=== PATIENT | male | born 1955 ===

== ENCOUNTER 2022-08-15 08:48 | Outpatient (REF) | payer MEDICARE, SELFPAY ==
[2022-08-15 12:02] LABS: Alanine Aminotransferase 17 U/L (0-40); Albumin Level 4.4 g/dL (3.5-5.0); Alkaline Phosphatase 72 U/L (39-117); Anion Gap 12 (12-20); Aspartate Amino Transferase 19 U/L (5-37); Bilirubin Total 0.7 mg/dL (0.0-1.0); Blood Urea Nitrogen 18 mg/dL (9-16); Carbon Dioxide 26 mmol/L (22-29); Chloride 107 mmol/L (96-108); Cholesterol 224 mg/dL; Estimated Glomerular Filt Rate > 60; Glucose Random 94 mg/dL (60-115); HDL Cholesterol 45 mg/dL; LDL Cholesterol Calculated 164 mg/dl; Potassium 4.2 mmol/L (3.3-5.1); Sodium 141 mmol/L (135-145); Total Protein 6.7 g/dL (6.5-8.0); Triglycerides 79 mg/dL
[2022-08-15 12:32] LABS: Folate 13.4 ng/mL (> or = 4.0); Free T4 (Free Thyroxine) 0.84 ng/dL (0.71-1.85); Prostate Specific Antigen Scr 0.44 ng/mL (<0.05-4.0); Thyroid Stimulating Hormone 1.14 uIU/mL (0.32-4.0); Vitamin B12 412 pg/mL (200-900)
[2022-08-18 20:48] LABS: Treponema pallidum Ab FTA ABS Nonreactive (Nonreactive)
== END 2022-08-15 08:49 | disposition home or self-care (01) ==
LOC: HO.WFDLDS 08:48
PROVIDERS: Visit Provider Internal Medicine
DX: Z12.5 Encounter for screening for malignant neoplasm of prostate (principal); R03.0 Elevated blood-pressure reading, without diagnosis of hypertension; E78.00 Pure hypercholesterolemia, unspecified
CPT/HCPCS: 36415; 80053; 80061; 82607; 82746; 84153; 84439; 84443; 86780

== ENCOUNTER 2023-08-06 11:58 | Outpatient (AMB) | payer BC, SELFPAY ==
[2023-08-06 12:30] VITALS: BP 130/72; PULSE 87; O2SAT 98; BMI 27.5
--- NOTE | 2023-08-06 12:30 | MHC.PC.OV ---
Vital Signs 08/06/23 12:30 Height 5 ft 5 in Weight 165 lb 0.2 oz BMI 27.5 BP 130/72 Blood Pressure Location Lt brachial Position Sitting Pulse 87 Pulse Source Pulse Oximeter Pulse Oximetry (%) 98 Oxygen Delivery Method Room Air Intake Visit Reasons: Annual Exam Intake Note: Patient is here today for a physical. Development Disability Specialist Required: No Allergies No Known Allergies Allergy (Verified 08/06/23 12:31) Medication List - Last Reconciled 08/06/23 by Abiodun Estevez MD [CPAP ] diphenhydramine HCl (NightTime Sleep Aid (diphenhydramine)) 25 mg PO BEDTIME PRN Tobacco use date assessed: 08/06/23 Fall risk assessment: No Falls in past year Last assessed Fall Risk: 08/15/23 Dental Screening Dental Screen Date: 08/06/23 Did you have a dental visit in the last 12 months?: Yes Did you have a dental problem in the last 6 months where you did not have access to dental care?: No Was dental information given to patient?: Patient has dentist HPI Annual Exam HPI Details 67-year-old overweight male with a history of hypercholesterolemia recurrent depression obstructive sleep apnea last seen in September 2022. Patient is here for follow-up. Review of the notes in June 2018 colonoscopy was done and advised to repeat in 5 years. frequency. dizzy on getting up fast. intermittent diarrhea PFSH Medical History (Updated 08/06/23 @ 12:43 by Abiodun Estevez MD) Overweight (BMI 25.0-29.9) GERD (gastroesophageal reflux disease) Surgical History (Updated 08/02/22 @ 14:28 by Abiodun Estevez MD) Right ACL tear Family History (Updated 09/13/22 @ 12:15 by Vale Helton CMA) Father Abdominal aneurysm Skin cancer Mother Alzheimer disease Sister No problems noted. Sister No problems noted. Brother Substance abuse Daughter No problems noted. Social History (Updated 08/06/23 @ 12:48 by Abiodun Estevez MD) Housing: Apartment Alcohol intake: current Comment: last drink thanksgiving 1 glass Patient Tobacco Use Status: Former Tobacco user Tobacco use type: Cigarette Years Smoked: 20 years old- 3 years e-Cigarette/Vaping Use: Never Used Second Hand Smoke Exposure: No service: No Current occupational status: employed Cognitive needs: No Hearing needs: No Vision needs: Yes Questionnaire PHQ-9 Over the last 2 weeks, how often have you been bothered by any of the following problems? 1. Little interest or pleasure in doing things: not at all 2. Feeling down, depressed, or hopeless: not at all 3. Trouble falling or staying asleep, or sleeping too much: not at all 4. Feeling tired or having little energy: not at all 5. Poor appetite or overeating: not at all 6. Feeling bad about yourself - or that you are a failure or have let yourself or your family down: not at all 7. Trouble concentrating on things, such as reading the newspaper or watching television: not at all 8. Moving or speaking so slowly that other people could have noticed. Or the opposite - being so fidgety or restless that you have been moving around a lot more than usual: not at all 9. Thoughts that you would be better off or of hurting yourself in some way: not at all Total score: 0 Depression Screening Interpretation: Negative Depression Screening Done: Yes Source: Developed by Drs. Danny Emerson, Alissa Saab, Tony Krishna and colleagues, with an educational cyndie from [employer]. Thrive Questionnaire Date Thrive assessed: 08/06/23 I am a: Patient What is your living situation today?: I have a steady place to live Within the past 12 months, did the food you bought not last and you didn't have the money to get more?: Never true Within the past 12 months, did you worry whether your food would run out before you got money to buy more?: Never true Do you have trouble paying for medicines?: No Do you have trouble getting transportation to medical appointments?: No Do you have trouble paying your heating and electricity bill?: No Do you have trouble taking care of your child, family member or friend?: No Do you have trouble with day-to-day activities such as bathing, preparing meals, shopping, managing finances, etc.?: No Are you currently unemployed and looking for a job?: No Are you interested in more education?: No Please select the resources that you would like help with: None THRIVE Score: 0 AUDIT C Alcohol Use Questionnaire (AUDIT-C) 1. How often do you have a drink containing alcohol?: Monthly or less 2. How many drinks containing alcohol do you have on a typical day when you are drinking?: 1 or 2 3. How often do you have six or more drinks on one occasion?: Never Total Score: 1 MEE-7 AMB Questionnaire MEE-7 Date MEE - 7 assessed: 08/06/23 Feeling nervous, anxious, or on edge: 0 = Not at all Not being able to stop or control worryin = Not at all Worrying too much about different things: 0 = Not at all Trouble relaxin = Not at all Being so restless that it is hard to sit still: 0 = Not at all Becoming easily annoyed or irritable: 0 = Not at all Feeling afraid as if something awful might happen: 0 = Not at all Total MEE-7 score (0-4 normal; 5-9 mild; 10-14 moderate; 15-21 severe): 0 Source: Developed by Drs. Danny Emerson, Alissa Saab, Tony Krishna and colleagues, with an educational cyndie from [employer]. Review of Systems Const Denies poor appetite and Denies weakness Eyes Denies no additional complaints ENT Reports Normal hearing present, Denies dizziness, Denies nasal congestion, Denies tinnitus and Denies sore throat Card Denies chest pain, Denies syncope, Denies rapid heart rate and Denies dyspnea Resp Denies cough and Denies dyspnea GI Denies change in stool character, Reports constipation, Denies diarrhea, Denies nausea and Denies vomiting Denies dysuria and Denies urinary frequency Neuro Reports Normal hearing present, Denies confusion, Denies dizziness, Denies syncope and Denies weakness Psych Denies confusion Physical exam (Primary Care) Vital Signs: Last Vital Signs Pulse 87 08/06/23 12:30 BP 130/72 08/06/23 12:30 Pulse Ox 98 08/06/23 12:30 Oxygen Delivery Method Room Air 08/06/23 12:30 BMI result Body Mass Index 27.5 Tobacco/Smoking Status: Tobacco use Status Tobacco use date assessed 08/06/23 08/06/23 12:36 Patient Tobacco Use Status Former Tobacco user 08/06/23 12:48 Tobacco use type Cigarette 08/06/23 12:48 e-Cigarette/Vaping Use Never Used 08/06/23 12:48 PHQ-9: PHQ-9 Score PHQ-9: Total score 0 08/06/23 12:39 Depression Screening Interpretation: Negative Thrive Assessment: Date of Thrive Assessment Date Thrive assessed 08/06/23 08/06/23 12:36 Const General: No confusion Orientation/consciousness: No confusion HENMT Head: Yes normocephalic Ears: external ears normal and TM's normal bilaterally Face and sinus: Yes normal facial exam Mouth: moist mucous membranes Throat: Yes tonsils normal Eyes Conjunctivae: conjunctivae normal Pupils: Equal, round and reactive pupils present and Pupil accommodation reflex normal Direct Ophthalmoscopy: normal light reflex Neck Neck: No lymphadenopathy Thyroid: Thyroid normal Chest Chest palpation & inspection: normal inspection of the chest Resp Effort & Inspection: normal respiratory effort and no audible wheezes Auscultation: clear to auscultation bilaterally, no crackles, no wheezes and lung sounds not diminished Cardio Rate: regular rate Rhythm: regular rhythm Peripheral pulses: radial pulses present and dorsalis pedis present GI Other: guaiac negative, prostate N, inguinal mild bulge Palpation (GI): no masses Auscultation: normal bowel sounds and normoactive bowel sounds Male General Exam: Yes normal external exam Skin General skin exam: no rashes or lesions noted Rashes: no rashes Neuro General: No confusion Cranial nerves: Yes Equal, round and reactive pupils present and Yes Normal hearing present Cognition (Neuro): normal cognition Gait exam (Neuro): Normal gait present Motor exam (neuro): 5/5 motor strength present throughout Deep tendon reflexes (DTR's): Right brachioradialis reflex intensity grade: 2+, Left brachioradialis reflex intensity grade: 2+, Right patellar reflex intensity grade: 2+ and Left patellar reflex intensity grade: 2+ Extrem General: No edema Immunizations tetanus-diphtheria toxoids-Td 2 Lf unit-2 Lf unit/0.5 mL IM suspension Performing Provider: Abiodun Estevez MD Performing Location: [facility] Administered by: FELICITY Patel on 08/06/23 13:04 Dose Route Admin Location Dispensed Lot Number Expiration Date [employer]DC [employer] 0.5 mL IM Left Deltoid 0.5 mL [id number] 10/15/23 [id number] [employer] VIS Given Date VIS Provided VIS Publication Date 08/06/23 Single Vaccine 21 Eligibility Eligibility Date Funding Source Not VFC Eligible 08/06/23 State funds Assessment and Plan Assessment & Plan (1) Annual physical exam: Code(s): Z00.00 - Encounter for general adult medical examination without abnormal findings (2) Obstructive sleep apnea (adult) (pediatric): Comment: CPAP 2011 Code(s): G47.33 - Obstructive sleep apnea (adult) (pediatric) Plan: Continue to use the CPAP more than 4 hours a night and benefits from this. (3) Recurrent depression: Comment: Declined any counseling and medication Code(s): F33.9 - Major depressive disorder, recurrent, unspecified Plan: Stable (4) Hypercholesterolemia: Code(s): E78.00 - Pure hypercholesterolemia, unspecified Plan: Avoid fried foods, chicken skin, eggs, butter margarine, pastries and meat. Be it pork or beef they have a lot of cholesterol LDL goal of less than 130 and triglyceride of less than 150. (5) Family history of colon cancer: Code(s): Z80.0 - Family history of malignant neoplasm of digestive organs Plan: Discussed and reminded about colonoscopy (6) Frequency of micturition: Code(s): R35.0 - Frequency of micturition (7) Bilateral hand pain: Code(s): M79.641 - Pain in right hand; M79.642 - Pain in left hand Orders: Orders US bladder Today R35.0 - Frequency of micturition Comprehensive Met. Panel Today R35.0 - Frequency of micturition Vitamin B12 and Folate Today R35.0 - Frequency of micturition UA w Microscopic Today R35.0 - Frequency of micturition Hemoglobin A1c Today R35.0 - Frequency of micturition Rheumatoid Factor Today M79.641 - Pain in right hand, M79.642 - Pain in left hand C Reactive Protein Today M79.641 - Pain in right hand, M79.642 - Pain in left hand XR hand LT 2V Today M79.641 - Pain in right hand, M79.642 - Pain in left hand Td State Immunization Today Z23 - Encounter for immunization Complete Blood Count Auto Diff Today R35.0 - Frequency of micturition Free T4 (Free Thyroxine) Today R35.0 - Frequency of micturition Thyroid Stimulating Hormone Today R35.0 - Frequency of micturition Lipid Panel Today E78.00 - Pure hypercholesterolemia, unspecified, R35.0 - Frequency of micturition Prostate Specific Antigen Scr Today R35.0 - Frequency of micturition Erythrocyte Sedimentation Rate Today M79.641 - Pain in right hand, M79.642 - Pain in left hand XR hand RT 2V Today M79.641 - Pain in right hand, M79.642 - Pain in left hand Referrals Gastroenterology Referral Z80.0 - Family history of malignant neoplasm of digestive organs Coding Level of Care Code Est Pt Prev Care >65y(94281) Diagnoses Annual physical exam Z00.00 Obstructive sleep apnea (adult) (pediatric) G47.33 Recurrent depression F33.9 Hypercholesterolemia E78.00 Family history of colon cancer Z80.0 Frequency of micturition R35.0 Bilateral hand pain M79.641; M79.642
== END 2023-08-06 13:12 | disposition home or self-care (01) ==
PROVIDERS: Visit Provider Internal Medicine
DX: Z00.00 Encounter for general adult medical examination without abnormal findings (principal); G47.33 Obstructive sleep apnea (adult) (pediatric); F33.9 Major depressive disorder, recurrent, unspecified; Z23 Encounter for immunization; E78.00 Pure hypercholesterolemia, unspecified; Z80.0 Family history of malignant neoplasm of digestive organs; R35.0 Frequency of micturition; M79.641 Pain in right hand; M79.642 Pain in left hand
CPT/HCPCS: 90471; 90714; 99397

== ENCOUNTER 2023-08-06 13:18 | Outpatient (REF) | payer MEDICARE, SELFPAY ==
--- NOTE | ~2023-08-06 | XR_ITS ---
EXAMINATION: XR HAND, RIGHT XR HAND, LEFT CLINICAL INFORMATION: Pain in bilateral hands. COMPARISON: None available. TECHNIQUE: PA, lateral, and oblique views of each hand and PA, lateral, and oblique views of each wrist. FINDINGS: RIGHT HAND: Moderate degenerative changes in the first carpometacarpal joint with joint space narrowing and hypertrophic change. Ulnar minus variance. Moderate degenerative changes with hypertrophic change in MCP joints, most notable in the second and third metacarpophalangeal joints. Marked degenerative changes with abundant hypertrophic change and adjacent ossicles/calcifications in the first IP and second DIP joints. Moderate degenerative changes at the fifth PIP joint. Tiny calcifications/ossicles adjacent to scattered joints of the hand of indeterminate age and etiology. Correlation with the clinical exam recommended to determine significance. LEFT HAND: Moderate degenerative changes in the first carpometacarpal joint with joint space narrowing and hypertrophic change. Advanced degenerative changes with hypertrophic change in the first IP, second DIP and third DIP joints. Moderate degenerative changes with hypertrophic change notable in second and third MCP joints. Tiny calcification/ossifications in the soft tissues adjacent to scattered joints. Correlation with clinical exam recommended to determine significance. XR/XR hand RT 2V IMPRESSION: 1. Fitstjql-da-yegwvd degenerative changes in bilateral hands and wrists. 2. Tiny calcifications/ossicles adjacent to scattered joints of the hands of indeterminate age and etiology. Correlation with the clinical exam recommended to determine significance. Recommend follow-up imaging in 10-14 days if fracture is suspected.
--- NOTE | ~2023-08-06 | XR_ITS ---
EXAMINATION: XR HAND, RIGHT XR HAND, LEFT CLINICAL INFORMATION: Pain in bilateral hands. COMPARISON: None available. TECHNIQUE: PA, lateral, and oblique views of each hand and PA, lateral, and oblique views of each wrist. FINDINGS: RIGHT HAND: Moderate degenerative changes in the first carpometacarpal joint with joint space narrowing and hypertrophic change. Ulnar minus variance. Moderate degenerative changes with hypertrophic change in MCP joints, most notable in the second and third metacarpophalangeal joints. Marked degenerative changes with abundant hypertrophic change and adjacent ossicles/calcifications in the first IP and second DIP joints. Moderate degenerative changes at the fifth PIP joint. Tiny calcifications/ossicles adjacent to scattered joints of the hand of indeterminate age and etiology. Correlation with the clinical exam recommended to determine significance. LEFT HAND: Moderate degenerative changes in the first carpometacarpal joint with joint space narrowing and hypertrophic change. Advanced degenerative changes with hypertrophic change in the first IP, second DIP and third DIP joints. Moderate degenerative changes with hypertrophic change notable in second and third MCP joints. Tiny calcification/ossifications in the soft tissues adjacent to scattered joints. Correlation with clinical exam recommended to determine significance. XR/XR hand LT 2V IMPRESSION: 1. Kwmaihky-pf-xkaffa degenerative changes in bilateral hands and wrists. 2. Tiny calcifications/ossicles adjacent to scattered joints of the hands of indeterminate age and etiology. Correlation with the clinical exam recommended to determine significance. Recommend follow-up imaging in 10-14 days if fracture is suspected.
== END 2023-08-06 13:19 | disposition home or self-care (01) ==
LOC: HO.XRAY 13:18
PROVIDERS: PCP Internal Medicine; Visit Provider Internal Medicine
DX: M79.641 Pain in right hand (principal); M79.642 Pain in left hand
CPT/HCPCS: 73120

== ENCOUNTER 2023-08-15 12:56 | Outpatient (REF) | payer MEDICARE, SELFPAY ==
--- NOTE | ~2023-08-15 | US_ITS ---
EXAMINATION: US PELVIS LIMITED (BLADDER) CLINICAL INFORMATION: Frequency of micturition. COMPARISON: None available. TECHNIQUE: Real-time imaging of the bladder. FINDINGS: BLADDER: Well distended. Bilateral ureteral jets are demonstrated. Prevoid bladder volume is 286.9 mL. Postvoid bladder volume is 22.1 mL. The prostate volume is 18.1 mL. US/US bladder IMPRESSION: Postvoid bladder volume is 22.1 mL. Prostate volume is 18.1 mL.
== END 2023-08-15 12:57 | disposition home or self-care (01) ==
LOC: HO.US 12:56
PROVIDERS: PCP Internal Medicine; Visit Provider Internal Medicine
DX: R35.0 Frequency of micturition (principal)
CPT/HCPCS: 76857

== ENCOUNTER 2023-08-20 09:16 | Outpatient (REF) | payer MEDICARE, SELFPAY ==
[2023-08-20 10:20] LABS: MANUAL DIFF FLAG NO
[2023-08-20 10:37] LABS: Appearance Urine Clear; Color Urine Yellow; Glucose Urine UA Negative (Negative); Leukocyte Esterase Urine Negative (Negative); Nitrite Urine Negative (Negative); Urine Blood Negative (Negative); Urine Ketones Trace mg/dL (Negative); Urine Protein Negative (Neg-Trace)
[2023-08-20 10:43] LABS: Bacteria Urine None Seen (None Seen); Hyaline Casts Urine 0-2 /LPF (0-2); RBC Urine 0-2 /HPF (0-2); Squamous Epithelial Cell Urine 0-2 /HPF (0-2); WBC Urine 0-5 /HPF (0-5)
[2023-08-20 10:44] LABS: Estimated Average Glucose 103 mg/dL; Hemoglobin A1c % 5.2 % (<6.0)
[2023-08-20 10:49] LABS: Basophils Percent Auto 0.5 % (0-2); Eosinophils Absolute Auto 0.2 X10*3/uL (0.0-0.4); Eosinophils Percent Auto 2.7 % (0-4); Hematocrit 43.8 % (42.0-52.0); Hemoglobin 14.6 g/dl (14.0-18.0); Imm Gran Abs Auto 0.01 X10*3/uL (0.00-0.03); Imm Gran Pct Auto 0.2 % (0.0-0.4); Lymphocytes Absolute Auto 2.2 X10*3/uL (1.2-4.9); Lymphocytes Percent Auto 35.5 % (20-40); Mean Corpuscular HGB Conc 33.3 g/dl (31.0-36.0); Mean Corpuscular Hemoglobin 29.8 pg (27.0-33.0); Mean Corpuscular Volume 89.4 fL (80.0-98.0); Mean Platelet Volume 10.6 fL (9.4-12.4); Monocytes Absolute Auto 0.6 X10*3/uL (0.1-1.2); Monocytes Percent Auto 9.3 % (2-11); Neutrophils Absolute Auto 3.2 x10*3/uL (2.0-8.3); Neutrophils Percent Auto 51.8 % (45-73); Platelet Count 205 X10*3/uL (160-400); Red Cell Distribution Width 12.9 % (11.0-16.0); White Blood Count 6.2 X10*3/uL (4.8-10.8)
[2023-08-20 11:34] LABS: Alanine Aminotransferase 21 U/L (0-40); Albumin Level 4.2 g/dL (3.5-5.0); Alkaline Phosphatase 69 U/L (39-117); Anion Gap 11 (12-20); Aspartate Amino Transferase 19 U/L (5-37); Bilirubin Total 0.5 mg/dL (0.0-1.0); Blood Urea Nitrogen 13 mg/dL (9-16); C Reactive Protein < 0.10 mg/dL (< or = 0.50); Calcium 9.2 mg/dL (8.4-10.2); Carbon Dioxide 27 mmol/L (22-29); Chloride 108 mmol/L (96-108); Cholesterol 228 mg/dL (<200); Estimated Glomerular Filt Rate > 60; Glucose Random 100 mg/dL (60-115); HDL Cholesterol 47 mg/dL (>40); LDL Cholesterol Calculated 153 mg/dL (<100); Potassium 3.8 mmol/L (3.3-5.1); Sodium 142 mmol/L (135-145); Total Protein 7.1 g/dL (6.5-8.0); Triglycerides 140 mg/dL (<150)
[2023-08-20 11:44] LABS: Rheumatoid Factor < 13.0 IU/mL (<15.0)
[2023-08-20 11:54] LABS: Erythrocyte Sedimentation Rate 5 MM/HR (0-15); Free T4 (Free Thyroxine) 0.82 ng/dL (0.71-1.85)
[2023-08-20 12:05] LABS: Folate 11.3 ng/mL (> or = 4.0); Prostate Specific Antigen Scr 0.45 ng/mL (<0.05-4.0); Vitamin B12 551 pg/mL (200-900)
== END 2023-08-20 09:17 | disposition home or self-care (01) ==
LOC: HO.10HDL 09:16
PROVIDERS: Visit Provider Internal Medicine
DX: Z12.5 Encounter for screening for malignant neoplasm of prostate (principal); M79.641 Pain in right hand; M79.642 Pain in left hand; E78.00 Pure hypercholesterolemia, unspecified; R35.0 Frequency of micturition
CPT/HCPCS: 36415; 80053; 80061; 81001; 82607; 82746; 83036; 84153; 84439; 84443; 85025; 85652; 86140; 86431

== ENCOUNTER 2023-11-02 08:53 | Day surgery (SDC) | payer MEDICARE, SELFPAY ==
[2023-10-31 14:58] VITALS: BMI 27.1
--- NOTE | 2023-11-01 09:38 | P.CONAN_ITS ---
Documented by User: Maite Sellers NP 11/01/23 09:38 HPI - Anesthesia Eval Consult details Narrative: 67yo M for Colonoscopy PMFSH Active Problems Active Problems: All Active Problems Frequency of micturition (Acute) Family history of colon cancer (Acute) Thigh pain (Acute) Bilateral hand pain (Acute) Hypercholesterolemia (Acute) Multiple pigmented nevi (Acute) Guaiac + stool (Acute) Recurrent depression (Acute) Annual physical exam (Acute) Obstructive sleep apnea (adult) (pediatric) (Acute) Blood pressure elevated without history of HTN (Acute) Past Medical History Medical History (Updated 11/02/23 @ 09:47 by Julia Nolan RN) Elevated cholesterol Arthritis Sleep apnea Overweight (BMI 25.0-29.9) GERD (gastroesophageal reflux disease) Family History Family History (Updated 09/13/22 @ 12:15 by Vale Helton CMA) Father Abdominal aneurysm Skin cancer Mother Alzheimer disease Sister No problems noted. Sister No problems noted. Brother Substance abuse Daughter No problems noted. Surgical History Surgical History History of repair of anterior cruciate ligament H/O colonoscopy Social History Social History (Updated 10/31/23 @ 14:57 by Claudia Dockery RN) Housing: Apartment Alcohol intake: current Comment: last drink thanksgiving 1 glass Patient Tobacco Use Status: Former Tobacco user Quit Date: >10 yr ago Tobacco use type: Cigarette e-Cigarette/Vaping Use: Never Used Second Hand Smoke Exposure: No Advance Directives: No Advance Directives Information Provided: Yes service: No Current occupational status: employed Cognitive needs: No Hearing needs: No Vision needs: Yes Meds Allergies Allergy/AdvReac Type Severity Reaction Status Date / Time No Known Allergies Allergy Verified 11/02/23 09:48 Home Medications ?Medication ?Instructions ?Recorded ?Confirmed ?Last Taken ?Type CPAP 08/02/22 08/06/23 Unknown History diphenhydramine HCl 25 mg capsule 25 mg PO BEDTIME PRN Insomnia 08/06/23 11/02/23 Unknown History (NightTime Sleep Aid (diphenhydramine)) Exam Height,Weight and Vital Signs: Height 5 ft 6 in Weight 76.204 kg Assessment and Plan Assessment Anesthesia Assessment: Chart Reviewed Documented by User: Rustam Nelson MD 11/02/23 10:03 [facility] Past Medical History Medical History (Updated 11/02/23 @ 09:47 by Julia Nolan, RN) Elevated cholesterol Arthritis Sleep apnea Overweight (BMI 25.0-29.9) GERD (gastroesophageal reflux disease) Family History Family History (Updated 09/13/22 @ 12:15 by Vale Helton CMA) Father Abdominal aneurysm Skin cancer Mother Alzheimer disease Sister No problems noted. Sister No problems noted. Brother Substance abuse Daughter No problems noted. Family history of problems with anesthesia: No Surgical History Surgical History History of repair of anterior cruciate ligament H/O colonoscopy History of Problems with Anesthesia: No Social History Social History (Updated 10/31/23 @ 14:57 by Claudia Dockery RN) Housing: Apartment Alcohol intake: current Comment: last drink thanksgiving 1 glass Patient Tobacco Use Status: Former Tobacco user Quit Date: >10 yr ago Tobacco use type: Cigarette e-Cigarette/Vaping Use: Never Used Second Hand Smoke Exposure: No Advance Directives: No Advance Directives Information Provided: Yes service: No Current occupational status: employed Cognitive needs: No Hearing needs: No Vision needs: Yes Meds Allergies Allergy/AdvReac Type Severity Reaction Status Date / Time No Known Allergies Allergy Verified 11/02/23 09:48 Home Medications ?Medication ?Instructions ?Recorded ?Confirmed ?Last Taken ?Type CPAP 08/02/22 08/06/23 Unknown History diphenhydramine HCl 25 mg capsule 25 mg PO BEDTIME PRN Insomnia 08/06/23 11/02/23 Unknown History (NightTime Sleep Aid (diphenhydramine)) Exam Airway Mallampati Class: II TM Dist: >3cm Neck ROM: Full Loose/Missing/Broken Teeth: No Heart: rrr Lungs: cta Assessment and Plan Assessment Anesthesia Assessment: Anesthesia Plan Discussed and Smoking Cess. Discussed Final Anesthetic Review Family History of Problems with Anesthesia: No History of Problems with Anesthesia: No NPO: Yes ASA Class: II Final Preanesthetic Review: No Changes in Pt Med Stat, Meds/Allgs Chart Reviewed, Consent Obtained/Reviewed and Anes Risks/Benef Reviewed Patient Risk: Intermediate Procedure Risk: Intermediate Anesthetic Plan Anesthetic Plan: MAC: Disposition: Standard PACU
[2023-11-02 09:49] VITALS: BMI 24.9
[2023-11-02 10:01] VITALS: BP 156/95; PULSE 74; RESP 15; TEMP 36.7; O2SAT 96
[2023-11-02] MEDS: Lactated Ringers 1,000 ML 100 ML IVCONT (10:11)
--- NOTE | 2023-11-02 11:05 | MHC.SHP ---
Pre-Procedural Eval Section A - 24 Hr Update-Section A only Date of Service: 11/02/23 The patient is an INPATIENT: No Changes since office visit: No Cold of Flu in the past 2 weeks, No New Medical Problems, No Changes in Medication and No Patient answered all questions The patient has been examined within 24 hours of the surgical procedure. The History & Physical has been completed within 30 days and I have reviewed it.: Yes Section B - Complete if H&P > 30 days Chief Complaint: Encounter for screening for malignant neoplasm of Allergies: Allergies Allergy/AdvReac Type Severity Reaction Status Date / Time No Known Allergies Allergy Verified 11/02/23 09:48 Plan I have reviewed the history and physical and performed a pertinent physical examination on my patient. No changes have occurred unless specified. Time Spent With Patient Time: Total time managing care of this patient today ____ minutes.
[2023-11-02 11:42] VITALS: BP 95/61; PULSE 86; RESP 16; TEMP 36.3; O2SAT 95
[2023-11-02 11:57] VITALS: BP 88/62; PULSE 77; RESP 18; O2SAT 95
[2023-11-02 12:12] VITALS: BP 102/72; PULSE 67; RESP 18; TEMP 36.3; O2SAT 99
--- NOTE | 2023-11-02 14:38 | OP_ITS ---
DATE OF SERVICE: 11/02/2023 SURGEON: Cameron Esposito MD INDICATIONS: Colon cancer screening and family history of colon polyps. PREOPERATIVE DIAGNOSIS: POSTOPERATIVE DIAGNOSIS: PROCEDURE PERFORMED: Colonoscopy to the terminal ileum. ESTIMATED BLOOD LOSS: COMPLICATIONS: ANESTHESIA: Monitored anesthesia care. ASSISTANTS: SPECIMENS: DESCRIPTION OF PROCEDURE: A history and physical was performed. The risks and benefits of the procedure were explained to the patient. Informed consent was obtained. The patient was placed in the left lateral decubitus position. A digital rectal exam was performed and was found to be normal. The Olympus pediatric video colonoscope was introduced into the rectum and advanced to the cecum. The cecum was identified by transillumination, palpation, and identification of ileocecal valve. Examination was performed. The scope was removed. He tolerated the procedure well and was returned to the recovery area in stable condition. FINDINGS: The terminal ileum was examined and appeared normal. The visualized colonic mucosa was normal. The quality of the prep was good. No polyps were identified. There was mild sigmoid diverticulosis. Retroflexed examination showed moderate-sized internal hemorrhoids. IMPRESSION: Normal colonoscopy. RECOMMENDATION: 1. Follow up as needed. 2. Repeat colonoscopy could be considered in 5 years due to family history of colon polyps. MD STEVEN Treviño/CYNDI / [id number] MTDD
== END 2023-11-02 12:58 | disposition home or self-care (01) ==
PROVIDERS: PCP Internal Medicine; Visit Provider Internal Medicine Gastroenterology
PROC: 0DJD8ZZ Inspection of Lower Intestinal Tract, Via Natural or Artificial Opening Endoscopic (ICD-10-PCS; CPT 45378; principal; 2023-11-02 11:40)
DX: Z12.11 Encounter for screening for malignant neoplasm of colon (principal); K57.30 Diverticulosis of large intestine without perforation or abscess without bleeding; K64.8 Other hemorrhoids; E78.00 Pure hypercholesterolemia, unspecified; G47.33 Obstructive sleep apnea (adult) (pediatric); K59.4 Anal spasm; Z83.719 Family history of colon polyps, unspecified; Z87.891 Personal history of nicotine dependence
CPT/HCPCS: G0105; J2704

== ENCOUNTER 2023-11-15 09:33 | Outpatient (AMB) | payer BC, SELFPAY ==
[2023-11-15 09:35] VITALS: BP 124/80; BMI 26.2
--- NOTE | 2023-11-15 09:35 | A.OFFPC_ITS ---
Vital Signs 11/15/23 09:35 Height 5 ft 6 in Weight 162 lb 6 oz BMI 26.2 BP 124/80 Blood Pressure Location Lt brachial Position Sitting Pulse Source Pulse Oximeter Oxygen Delivery Method Room Air Intake Visit Reasons: bilateral hand pain Weight Engineer Required: No Manager Scientific: Not Required per policy Accompanied by: Self / Same As Patient Allergies No Known Allergies Allergy (Verified 11/15/23 09:36) Tobacco use date assessed: 08/06/23 Fall risk assessment: No Falls in past year Last assessed Fall Risk: 11/15/23 Dental Screening Dental Screen Date: 08/06/23 HPI bilateral hand pain HPI Details 67-year-old overweight male with a histo ry of obstructive sleep apnea recurrent depression hypercholesterolemia coming in for follow-up. Last seen in 07/31/2023 colonoscopy done 10/29/2023 normal colonoscopy patient had frequency and ultrasound was the of the bladder was done revealing negative results did complain about hand pain also an x-ray done showing moderate to marked degenerative changes both hands. colon test paper given to patient- concern on [employer] work and concern on metals in the body but discussed about not beeing able to act on this [facility] Medical History (Updated 11/15/23 @ 10:15 by Abiodun Estevez MD) Bilateral hand pain Elevated cholesterol Arthritis Sleep apnea Overweight (BMI 25.0-29.9) GERD (gastroesophageal reflux disease) Surgical History History of repair of anterior cruciate ligament H/O colonoscopy Family History (Updated 09/13/22 @ 12:15 by Vale Helton CMA) Father Abdominal aneurysm Skin cancer Mother Alzheimer disease Sister No problems noted. Sister No problems noted. Brother Substance abuse Daughter No problems noted. Social History (Updated 10/31/23 @ 14:57 by Claudia Dockery RN) Housing: Apartment Alcohol intake: current Alcohol intake frequency: former alcohol drinker Comment: last drink thanksgiving 1 glass Patient Tobacco Use Status: Former Tobacco user Tobacco use type: Cigarette e-Cigarette/Vaping Use: Never Used Second Hand Smoke Exposure: No service: No Current occupational status: employed Cognitive needs: No Hearing needs: No Vision needs: Yes Questionnaire Thrive Questionnaire Date Thrive assessed: 08/06/23 MEE-7 AMB Questionnaire MEE-7 Date MEE - 7 assessed: 08/06/23 Source: Developed by Drs. Danny Emerson, Alissa Saab, Tony Krishna and colleagues, with an educational cyndie from [employer]. Physical exam (Primary Care) Vital Signs: Last Vital Signs BP 124/80 11/15/23 09:35 Oxygen Delivery Method Room Air 11/15/23 09:35 BMI result Body Mass Index 26.2 Tobacco/Smoking Status: Tobacco use Status Tobacco use date assessed 08/06/23 11/15/23 09:36 Patient Tobacco Use Status Former Tobacco user 11/15/23 09:36 Tobacco use type Cigarette 11/15/23 09:36 e-Cigarette/Vaping Use Never Used 11/15/23 09:36 Thrive Assessment: Date of Thrive Assessment Date Thrive assessed 08/06/23 11/15/23 09:36 Const General: alert; No acute distress Eyes Conjunctivae: conjunctivae normal Resp Auscultation: clear to auscultation bilaterally Cardio Rate: regular rate Rhythm: regular rhythm GI Inspection: Yes normal to inspection Extrem General: Yes normal to inspection and No edema Assessment and Plan Assessment & Plan (1) Frequency of micturition: Code(s): R35.0 - Frequency of micturition Plan: Ultrasound of the bladder revealed negative results (2) Osteoarthritis of hands, bilateral: Code(s): M19.041 - Primary osteoarthritis, right hand; M19.042 - Primary osteoarthritis, left hand Plan: Keep active and discussed about medications discussed about Voltaren gel (3) Hypercholesterolemia: Code(s): E78.00 - Pure hypercholesterolemia, unspecified Plan: Avoid fried foods, chicken skin, eggs, butter margarine, pastries and meat. Be it pork or beef they have a lot of cholesterol LDL goal of less than 130 and triglyceride of less than 150 Coding Level of Care Code Est Pt Level 4 (28079) Diagnoses Frequency of micturition R35.0 Osteoarthritis of hands, bilateral M19.041; M19.042 Hypercholesterolemia E78.00
== END 2023-11-15 12:36 | disposition home or self-care (01) ==
PROVIDERS: PCP Internal Medicine; Visit Provider Internal Medicine
DX: R35.0 Frequency of micturition (principal); M19.041 Primary osteoarthritis, right hand; M19.042 Primary osteoarthritis, left hand; E78.00 Pure hypercholesterolemia, unspecified
CPT/HCPCS: 99214

== ENCOUNTER 2024-08-08 08:52 | Outpatient (AMB) | payer MEDICARE, SELFPAY ==
[2024-08-08 09:17] VITALS: BP 140/72; PULSE 73; O2SAT 97; BMI 26.1
--- NOTE | 2024-08-08 09:17 | A.OFFPC_ITS ---
Vital Signs 08/08/24 09:17 08/08/24 09:41 Height 5 ft 6 in Weight 162 lb BMI 26.1 BP 140/72 H 150/60 H Blood Pressure Location Lt brachial Lt brachial Position Sitting Pulse 73 Pulse Source Pulse Oximeter Pulse Oximetry (%) 97 Oxygen Delivery Method Room Air Intake Visit Reasons: Annual Exam Allergies No Known Allergies Allergy (Verified 08/08/24 09:18) Medication List - Last Reconciled 08/08/24 by Abiodun Estevez MD [CPAP ] diphenhydramine HCl (Allergy Relief (diphenhydramine)) 12.5 mg PO Q4-6H PRN Tobacco use date assessed: 08/08/24 Fall risk assessment: No Falls in past year Last assessed Fall Risk: 08/08/24 Dental Screening Dental Screen Date: 08/08/24 Did you have a dental visit in the last 12 months?: Yes Did you have a dental problem in the last 6 months where you did not have access to dental care?: No Was dental information given to patient?: Patient has dentist HPI Annual Exam HPI Details nausea, occ wakes up sob PFSH Medical History (Updated 08/08/24 @ 09:50 by Abiodun Estevez MD) Bilateral hand pain Elevated cholesterol Arthritis Sleep apnea Overweight (BMI 25.0-29.9) GERD (gastroesophageal reflux disease) Surgical History History of repair of anterior cruciate ligament H/O colonoscopy Family History (Updated 09/13/22 @ 12:15 by Vale Helton CMA) Father Abdominal aneurysm Skin cancer Mother Alzheimer disease Sister No problems noted. Sister No problems noted. Brother Substance abuse Daughter No problems noted. Social History (Updated 08/08/24 @ 09:45 by Abiodun Estevez MD) Housing: Apartment Alcohol intake: current Alcohol intake frequency: former alcohol drinker Comment: last drink thanksgiving 1 glass Patient Tobacco Use Status: Former Tobacco user Tobacco use type: Cigarette Years Smoked: 1989 quit [place] e-Cigarette/Vaping Use: Never Used Second Hand Smoke Exposure: No service: No Current occupational status: employed Cognitive needs: No Hearing needs: No Vision needs: Yes Questionnaire PHQ-9 Over the last 2 weeks, how often have you been bothered by any of the following problems? 1. Little interest or pleasure in doing things: not at all 2. Feeling down, depressed, or hopeless: not at all 3. Trouble falling or staying asleep, or sleeping too much: more than half the days 4. Feeling tired or having little energy: several days 5. Poor appetite or overeating: not at all 6. Feeling bad about yourself - or that you are a failure or have let yourself or your family down: not at all 7. Trouble concentrating on things, such as reading the newspaper or watching television: not at all 8. Moving or speaking so slowly that other people could have noticed. Or the opposite - being so fidgety or restless that you have been moving around a lot m ore than usual: not at all 9. Thoughts that you would be better off or of hurting yourself in some way: not at all Total score: 3 Depression Screening Interpretation: Positive Depression Screening Done: Yes 08616 - PHQ-9 Billing: Yes Source: Developed by Drs. Danny Emerson, Alissa Saab, Tony Krishna and colleagues, with an educational cyndie from [employer]. Thrive Questionnaire Date Thrive assessed: 08/08/24 I am a: Patient What is your living situation today?: I have a steady place to live Within the past 12 months, did the food you bought not last and you didn't have the money to get more?: Never true Within the past 12 months, did you worry whether your food would run out before you got money to buy more?: Never true Do you have trouble paying for medicines?: No Do you have trouble getting transportation to medical appointments?: No Do you have trouble paying your heating and electricity bill?: No Do you have trouble taking care of your child, family member or friend?: No Do you have trouble with day-to-day activities such as bathing, preparing meals, shopping, managing finances, etc.?: No Are you currently unemployed and looking for a job?: No Are you interested in more education?: No Currently or been in a relationship where the following occur: No concerns repor yonny THRIVE Score: 0 AUDIT C Alcohol Use Questionnaire (AUDIT-C) 1. How often do you have a drink containing alcohol?: Monthly or less 2. How many drinks containing alcohol do you have on a typical day when you are drinking?: 1 or 2 3. How often do you have six or more drinks on one occasion?: Never Total Score: 1 MEE-7 AMB Questionnaire MEE-7 Date MEE - 7 assessed: 08/08/24 Feeling nervous, anxious, or on edge: 0 = Not at all Not being able to stop or control worryin = Not at all Worrying too much about different things: 0 = Not at all Trouble relaxin = Not at all Being so restless that it is hard to sit still: 0 = Not at all Becoming easily annoyed or irritable: 0 = Not at all Feeling afraid as if something awful might happen: 0 = Not at all Total MEE-7 score (0-4 normal; 5-9 mild; 10-14 moderate; 15-21 severe): 0 Source: Developed by Drs. Danny Emerson, Alissa Saab, Tony Krishna and colleagues, with an educational cyndie from [employer]. Review of Systems Const Denies poor appetite and Denies weakness Eyes Denies no additional complaints ENT Reports Normal hearing present, Denies dizziness, Denies nasal congestion, Denies tinnitus and Denies sore throat Card Denies chest pain, Denies syncope, Denies rapid heart rate and Denies dyspnea Resp Denies cough and Denies dyspnea GI Denies change in stool character, Reports constipation, Denies diarrhea, Denies nausea and Denies vomiting Denies dysuria and Denies urinary frequency Neuro Reports Normal hearing present, Denies confusion, Denies dizziness, Denies syncope and Denies weakness Psych Denies confusion Physical exam (Primary Care) Vital Signs: Last Vital Signs Pulse 73 08/08/24 09:17 BP 150/60 H 08/08/24 09:41 Pulse Ox 97 08/08/24 09:17 Oxygen Delivery Method Room Air 08/08/24 09:17 BMI result Body Mass Index 26.1 Tobacco/Smoking Status: Tobacco use Status Tobacco use date assessed 08/08/24 08/08/24 09:23 Patient Tobacco Use Status Former Tobacco user 08/08/24 09:45 Tobacco use type Cigarette 08/08/24 09:45 e-Cigarette/Vaping Use Never Used 08/08/24 09:45 PHQ-9: PHQ-9 Score PHQ-9: Total score 3 08/08/24 09:33 Depression Screening Interpretation: Positive Thrive Assessment: Date of Thrive Assessment Date Thrive assessed 08/08/24 08/08/24 09:23 Currently or been in a relationship where the following occur: No concerns reported Const General: No confusion Orientation/consciousness: No confusion HENMT Head: Yes normocephalic Ears: external ears normal and TM's normal bilaterally Face and sinus: Yes normal facial exam Mouth: moist mucous membranes Throat: Yes tonsils normal Eyes Conjunctivae: conjunctivae normal Pupils: Equal, round and reactive pupils present and Pupil accommodation reflex normal Direct Ophthalmoscopy: normal light reflex Neck Neck: No lymphadenopathy Thyroid: Thyroid normal Chest Chest palpation & inspection: normal inspection of the chest Resp Effort & Inspection: normal respiratory effort and no audible wheezes Auscultation: clear to auscultation bilaterally, no crackles, no wheezes and lung sounds not diminished Cardio Rate: regular rate Rhythm: regular rhythm Peripheral pulses: radial pulses present and dorsalis pedis present GI Other: guaiac neg, prostate N Palpation (GI): no masses Auscultation: normal bowel sounds and normoactive bowel sounds Other: L inguinal bulge Skin General skin exam: no rashes or lesions noted Rashes: no rashes Neuro General: No confusion Cranial nerves: Yes Equal, round and reactive pupils present and Yes Normal hearing present Cognition (Neuro): normal cognition Gait exam (Neuro): Normal gait present Motor exam (neuro): 5/5 motor strength present throughout Deep tendon reflexes (DTR's): Right brachioradialis reflex intensity grade: 2+, Left brachioradialis reflex intensity grade: 2+, Right patellar reflex intensity grade: 2+ and Left patellar reflex intensity grade: 2+ Extrem General: No edema Coding Level of Care Code Est Pt Prev Care >65y(84736) Diagnoses Annual physical exam Z00.00 Obstructive sleep apnea (adult) (pediatric) G47.33 Recurrent depression F33.9 Frequency of micturition R35.0 Hypercholesterolemia E78.00 Bilateral hip pain M25.551; M25.552 Additional Codes PHQ-9 - 18958 - PHQ-9 Billing: Yes ([id number]) Assessment & Plan Assessment & Plan (1) Annual physical exam: Code(s): Z00.00 - Encounter for general adult medical examination without abnormal findings Category: Medical Plan: Patient is advised to eat healthy, keep well hydrated, keep active and have adequate sleep. (2) Obstructive sleep apnea (adult) (pediatric): Comment: CPAP 2011 Code(s): G47.33 - Obstructive sleep apnea (adult) (pediatric) Category: Medical Plan: Continue to use the CPAP more than 4 hours a night and benefits from this. (3) Recurrent depression: Comment: Declined any counseling and medication Code(s): F33.9 - Major depressive disorder, recurrent, unspecified Category: Medical Plan: Stable (4) Frequency of micturition: Code(s): R35.0 - Frequency of micturition Category: Medical Plan: Workup is negative (5) Hypercholesterolemia: Code(s): E78.00 - Pure hypercholesterolemia, unspecified Category: Medical Plan: Avoid fried foods, chicken skin, eggs, butter margarine, pastries and meat. Be it pork or beef they have a lot of cholesterol (6) Bilateral hip pain: Code(s): M25.551 - Pain in right hip; M25.552 - Pain in left hip Category: Medical Plan History of Present Illness The patient is a 68-year-old male presenting for a wellness evaluation and follow-up on several chronic medical conditions, including obstructive sleep apnea managed with CPAP therapy since 2011, recurrent depression, hypercholesterolemia, and osteoarthritis. He reports notable joint pain exacerbated by cold weather, with discomfort spreading into his groin and aggravated by physical activity. He also recounted a history of occupational exposure to metals, specifically aluminum, raising concerns about potential systemic impacts, despite no current diagnostic confirmation. Current laboratory work from August 2023 records show elevation in cholesterol levels, emphasizing hypercholesterolemia management. Blood pressure measurement during the visit was 150/60 mmHg, indicating possible hypertension. Physical exam findings indicate an asymmetry consistent with a potential hernia, warranting attention to physical exertion. The patient expresses intent and methods in addressing and monitoring these health issues, specifically employing a routine of yoga and muscle-strengthening activities for arthritis management. Home blood pressure monitoring is recommended to rule out hypertension's persistence. 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 Occasional use of marijuana in the form of smoking and gummies reported. No alcohol consumption. - Exercise: Engages in yoga, uses weights, participates in routine physical activity including snow removal - Nutrition: Attempting to incorporate a balanced diet, minimizing evening food and beverage intake - Hobbies: Involves working with [employer] motorcycles and materials leading to potential exposure Review of Systems - Musculoskeletal: Reports joint pain exacerbated in cold weather and after physical activity - Respiratory: Denies chronic chest pains, but occasional shortness of breath - Neurological: Hearing reported as deteriorating, but not significantly impacting daily functions currently - Gastrointestinal: Occasional heartburn with specific foods Physical Exam General: Cooperative, healthy appearing, comfortable, no acute distress and well developed Orientation: Patient oriented x3 Limitations: No limitations Head: Normal to inspection Ears: Hearing worsening, patient should consider testing Nose: Normal external nose present Face and sinus: Normal facial exam Eyes: Appearance normal, both eyes and all related structures Neck: Normal visual inspection and Yes full ROM Respiratory: Normal respiratory effort and able to speak in complete sentences. Clear to auscultation bilaterally Cardiovascular: Regular rate and rhythm. Normal S1 and S2 GI: Normal to inspection. Soft to palpation and nontender Skin: No rashes or lesions noted Neuro: Patient oriented x3 Extremities: Normal to inspection Results - Labs: Previous results indicate elevated cholesterol (LDL 153 mg/dL); blood glucose at 100 mg/dL with normal HgA1c - Tests and Diagnostics: Previously normal electrolytic panel and liver functions Plan The patient requires continued management for chronic conditions such as hypercholesterolemia and hypertension through dietary modifications and home blood pressure monitoring, respectively. The asymmetric physical exam finding suggests a need to avoid heavy lifting to prevent exacerbation of a suspected hernia. Arthritis is managed through physical activity, potential pain relief gels, and maintaining regular movement. A CPAP re-evaluation might be necessary if symptoms of sleep apnea worsen, and a chest X-ray for heavy metal exposure considerations was discussed but not currently prioritized for intervention. Patient was informed and verbally consented to the use of an ambient scribe for clinic note documentation during this visit. Discussion Notes I discussed the importance of managing the patient's chronic conditions, including obstructive sleep apnea, hypercholesterolemia, arthritis, and potential hypertension. We reviewed the necessity for dietary interventions to manage cholesterol levels and emphasized the value of home monitoring for blood pressure. I elucidated the need to avoid heavy lifting due to asymmetry noted during physical examination, potentially indicative of a hernia, and recommended physical activity for arthritis management. We also discussed the patient's symptomatology related to potential heavy metal exposure and the rationale for obtaining a chest X-ray for further evaluation. Follow-up instructions include returning for further evaluation and blood tests, monitoring at-home blood pressure readings, and maintaining communication regarding any worsening symptoms. Patient Instructions - Continue CPAP therapy and monitor for changes in sleep quality. - Follow a cholesterol-lowering diet, focusing on reducing intake of egg yolks and fried foods. - Monitor blood pressure at home several times per week and record results. - Avoid heavy lifting to prevent worsening of suspected hernia. - Engage in regular exercises, particularly low impact, to manage arthritis symptoms. - Consider applying Voltaren Gel as needed for localized arthritis pain relief. - Get a chest X-ray for evaluation of potential heavy metal exposure. - Follow up with further blood tests and evaluations as instructed. - Report any new or worsening symptoms. Orders: Orders XR chest 2V Today R03.0 - Elevated blood-pressure reading, without diagnosis of hypertension XR hip SIVA min 3V Today M25.551 - Pain in right hip, M25.552 - Pain in left hip Complete Blood Count Auto Diff Today E78.00 - Pure hypercholesterolemia, unspecified Thyroid Stimulating Hormone Today E78.00 - Pure hypercholesterolemia, unspecified Vitamin B12 and Folate Today E78.00 - Pure hypercholesterolemia, unspecified Prostate Specific Antigen Scr Today E78.00 - Pure hypercholesterolemia, unspecified Comprehensive Met. Panel Today E78.00 - Pure hypercholesterolemia, unspecified Free T4 (Free Thyroxine) Today E78.00 - Pure hypercholesterolemia, unspecified Lipid Panel Today E78.00 - Pure hypercholesterolemia, unspecified Hemoglobin A1c Today E78.00 - Pure hypercholesterolemia, unspecified Venous Lead Today E78.00 - Pure hypercholesterolemia, unspecified Mercury, Blood Today E78.00 - Pure hypercholesterolemia, unspecified
--- OUTSIDE RECORDS SUMMARY | 2024-08-08 09:17 | XMS_ITS ---
Author Organization [facility] Address [address] [place] [address] Care Team Providers Care Mechanical Process Engineer Name Role Phone Abiodun Estevez MD Primary Care Provider Cameron Briones Jr Unavailable [phone] REASON FOR VISIT screening Encounters Encounter Location Date Provider Diagnosis [facility] [address] [address] [place], [place] [id number] 11/02/2023 Cameron Esposito Jr Encounter for screening colonoscopy Z12.11 and Family history of colon cancer Z80.0 ASSESSMENTS Encounter Date Diagnosis Assessment Notes Treatment Notes Treatment Clinical Notes 11/02/2023 Encounter for screening colonoscopy (ICD-10 - Z12.11) 11/02/2023 Family history of colon cancer (ICD-10 - Z80.0) PLAN OF TREATMENT No Information
--- OUTSIDE RECORDS SUMMARY | 2024-08-08 09:17 | XMS_ITS ---
Author Organization [facility] Address [address] [place] [address] Care Team Providers Care Senior Oracle Database Developer Name Role Phone Abiodun Estevez MD Primary Care Provider Cameron Briones Jr [phone] REASON FOR VISIT results Encounters Encounter Location Date Provider Diagnosis [facility] [address] [place] [address] 11/08/2023 Caemron Esposito Jr PLAN OF TREATMENT No Information
--- OUTSIDE RECORDS SUMMARY | 2024-08-08 09:17 | XMS_ITS ---
Author Organization [facility] Address [address] [place] [address] Care Team Providers Care Circular Gang Saw Operator Name Role Phone Abiodun Estevez MD Primary Care Provider Cameron Briones Jr Unavailable [phone] ALLERGIES No Known Allergies REASON FOR VISIT Patient presents today for a consultation MEDICATIONS Medication SIG (Take, Route, Fr equency, Duration) Notes Start Date End Date Status Ibuprofen 600 MG 1 tablet with food o r milk as needed Orally BID as needed Active IMMUNIZATIONS Vaccine Route Administration Date Status Comme nts Influenza Unknown 10/08/2023 Refused SOCIAL HISTORY Tobacco Use: Social History Observation Description Date Details (start date - stop date) Former Smoker NA - NA Sex Assigned At : Social History Observation Description Sex Assigned At Unknown Tobacco Use/Smoking Question Answer Notes Patient is a former smoker How long has it been since you last smoked? > 10 years Alcohol Screen Question Answer Notes Did you have a drink contain ing alcohol in the past year? Yes How often did you have a dri nk containing alcohol in the past year? 2 to 3 times a week (3 points) How many drinks did you have on a typical day when you were drinking in the past year? 1 or 2 drinks (0 point) How often did you have 6 or more drinks on one occasion in the past year? 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 43918663 VITAL SIGNS Temperature 97.5 degrees Fahrenheit 10/08/19 24 Blood pressure systolic 000 mm Hg 10/08/19 24 Blood pressure diastolic 00 mm Hg 024 Height 66 in 10/08/2023 Weight 168 lb 2 oz lbs 10/08/2023 BMI 27.13 kg/m2 10/08/2023 Encounters Encounter Location Date Provider Diagnosis [facility] [address] [place] [address] 10/08/2023 Cameron Esposito Jr Colon cancer screening Z12.11 ; Gastroesophageal reflux disease, unspecified whether esophagitis present K21.9 and Proctalgia fugax K59.4 ASSESSMENTS Encounter Date Diagnosis Assessment Notes Treatment Notes Treatment Clinical Notes 10/08/2023 Colon cancer screeni ng (ICD-10 - Z12.11) Colonoscopy material was printed 10/08/2023 Gastroesophageal reflux disease, unspecified whether esophagitis present (ICD-10 - K21.9) 10/08/2023 Proctalgia fugax (ICD-10 - K59.4) PLAN OF TREATMENT Treatment Notes Assessment Notes Colon cancer screening Colonoscopy mater ial was printed Future Test Test Name Order Date COLONOSCOPY 10/08/2023 Next Appt Details Follow Up: 1 Year, Reason: Progress Notes * Examination Category Sub-Category Detail Notes General Examination GENERAL APPEARANCE: in no [place] distress HEAD: normocephalic EYES: sclera non-icteric NECK/THYROID: no lymphadenopathy HEART: S1, S2 normal, no mu rmurs CHEST: normal shape and exp ansion LUNGS: clear to auscultatio n bilaterally ABDOMEN: soft, nontender, non distended, bowel sounds present, no organomegaly SKIN: anicteric EXTREMITIES: no clubbing, cyanosi s, or edema PSYCH: cognitive function i ntact ORAL CAVITY: mucosa moist
--- OUTSIDE RECORDS SUMMARY | 2024-08-08 09:18 | XMS_ITS | Patient Health Record ---
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 85213610 Problem Gastroesophageal reflux disease, unspecified whether esophagitis present (K21.9) Active confirmed 464230535 VITAL SIGNS Temperature 97.5 degrees Fahrenheit 10/08/2023 Blood pressure diastolic 00 mm Hg 10/08/2023 Height 66 in 10/08/2023 Blood pressure systolic 000 mm Hg 10/08/2023 Weight 168 lb 2 oz lbs 10/08/2023 BMI 27.13 kg/m2 10/08/2023 Encounters Encounter Location Date Provider Diagnosis [facility] [place] [address] [place], [place] [phone] 11/02/2023 Cameron Esposito Jr Encounter for screening colonoscopy Z12.11 and Family history of colon cancer Z80.0 [facility] [address] [place] [address] [place] [address] 10/08/2023 Cameron Esposito Jr Colon cancer screening Z12.11 ; Gastroesophageal reflux disease, unspecified whether esophagitis present K21.9 and Proctalgia fugax K59.4 [facility] [address] [address] 11/08/2023 Cameron Esposito Jr ASSESSMENTS Encounter Date Diagnosis Assessment Notes Treatment Notes Treatment Clinical Notes 11/02/2023 Encounter for screening colonoscopy (ICD-10 - Z12.11) 11/02/2023 Family history of colon cancer (ICD-10 - Z80.0) 10/08/2023 Colon cancer screeni ng (ICD-10 - Z12.11) Colonoscopy material was printed 10/08/2023 Gastroesophageal reflux disease, unspecified whether esophagitis present (ICD-10 - K21.9) 10/08/2023 Proctalgia fugax (ICD-10 - K59.4) PLAN OF TREATMENT Future Test Test Name Order Date COLONOSCOPY 03/29/2018 COLONOSCOPY 10/08/2023 Insurance Providers Payer Name Payer Address Payer Phone Subscriber Number Group Number Insured Name Patient Relationship to Insured Coverage Start Date Coverage End Date [facility] [address] [place], [place] [id number] [phone] [id number] CHARLEY GERMAN Self - patient is the insured MEDICAL (GENERAL) HISTORY Medical History History ICD Code Gastroesophageal reflux disease Obstructive sleep apnea Hyperlipidemia Arthritis Colonoscopy 2018, negative, five-year followup due to family history of colon polyps. Surgical History Surgery Date(Month/Year) ACL repair right knee
[2024-08-08 09:41] VITALS: BP 150/60
== END 2024-08-08 10:13 | disposition home or self-care (01) ==
PROVIDERS: PCP Internal Medicine; Visit Provider Internal Medicine
DX: Z00.00 Encounter for general adult medical examination without abnormal findings (principal); G47.33 Obstructive sleep apnea (adult) (pediatric); F33.9 Major depressive disorder, recurrent, unspecified; R35.0 Frequency of micturition; E78.00 Pure hypercholesterolemia, unspecified; M25.551 Pain in right hip; M25.552 Pain in left hip

== ENCOUNTER → 2024-08-08 08:52 | Outpatient (BNVA) | payer MEDICARE, SELFPAY | PROVIDERS: PCP Internal Medicine; Visit Provider Internal Medicine | DX: Z00.00 Encounter for general adult medical examination without abnormal findings (principal); G47.33 Obstructive sleep apnea (adult) (pediatric); F33.9 Major depressive disorder, recurrent, unspecified; R35.0 Frequency of micturition; E78.00 Pure hypercholesterolemia, unspecified; M25.551 Pain in right hip; M25.552 Pain in left hip | CPT/HCPCS: 96127; 99397 ==

== ENCOUNTER 2024-10-01 07:31 | Outpatient (REF) | payer MEDICARE, SELFPAY ==
--- NOTE | ~2024-10-01 | XR_ITS ---
EXAMINATION: XR CHEST CLINICAL INFORMATION: R03.0 - Elevated blood-pressure reading, without diagnosis of hypertension COMPARISON: None available. TECHNIQUE: 2 views of the chest were obtained. FINDINGS: No consolidation, pleural effusion or pneumothorax. Increased AP diameter of the thorax in the lateral projection with flattening of the diaphragm. Cardiomediastinal silhouette demonstrates a round apex. Calcified plaque thoracic aorta. Multilevel thoracolumbar spondylosis. Degenerative changes in the acromioclavicular joints more pronounced on the right shoulder. XR/XR chest 2V IMPRESSION: No acute airspace disease. Consider hypertensive cardiomyopathy in the correct clinical settings. Electronically signed by: Neeraj Ramírez MD 10/03/2024 07:27 AM EDT
--- NOTE | ~2024-10-01 | XR_ITS ---
EXAMINATION: XR BILATERAL HIPS WITH AP PELVIS CLINICAL INFORMATION: M25.551 - Pain in right hip COMPARISON: None available. TECHNIQUE: AP view of the pelvis and single views of each hip were obtained. FINDINGS: Sclerosis at the articular surface of the acetabulum both hips. Mild asymmetric joint space narrowing, both hips. No acute cortical disruption or malalignment. No lytic or blastic lesions. XR/XR hips SIVA min 3V IMPRESSION: Mild to moderate osteoarthrosis both hips. Electronically signed by: Neeraj Ramírez MD 10/03/2024 07:26 AM EDT
--- OUTSIDE RECORDS SUMMARY | 2024-10-01 07:35 | XMS_ITS ---
Author Organization [facility] Address [address] [place] [address] Care Team Providers Care Gear Finisher Name Role Phone Abiodun Estevez MD Primary Care Provider Cameron Briones Jr Unavailable Allergies No Known Allergies REASON FOR VISIT Patient presents today for a consultation Medications Medication SIG (Take, Route, Fr equency, Duration) Notes Start Date End Date Status Ibuprofen 600 MG 1 tablet with food o r milk as needed Orally BID as needed Active Immunizations Vaccine Route Administration Date Status Comme nts Influenza Unknown 10/08/2023 Refused Social History Tobacco Use: Social History Observation Description Date Details (start date - stop date) Former Smoker NA - NA Tobacco Use/Smoking Question Answer Notes Patient is [...] Never (0 point) Points 3 Interpretation Negative Problems Problem Type SNOMED Code ICD Code Onset Dates Problem Status W/U Status Risk Notes Problem 670849041 Gastroesophageal reflux disease, unspecified whether esophagitis present (K21.9) Active confirmed Problem 48601309 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 Vital Signs Temperature 97.5 degrees Fahrenheit 10/08/19 24 Blood pressure systolic 000 mm Hg 10/08/19 24 Blood pressure diastolic 00 mm Hg 024 Height 66 in 10/08/2023 Weight 168 lb 2 oz lbs 10/08/2023 BMI 27.13 kg/m2 10/08/2023 Encounters Encounter Location Date Provider Diagnosis [facility] [address] [place] [address] 10/08/2023 Cameron Esposito Jr Colon cancer screening Z12.11 ; Gastroesophageal reflux disease, unspecified whether esophagitis present K21.9 and Proctalgia fugax K59.4 Assessments Encounter Date Diagnosis (ICD Code) Assessment Notes Treatment Notes Treatment Clinical Notes Section Notes 10/08/2023 Colon cancer screening (ICD-10 - Z12.11) Colonoscopy material was printed We discussed his symptoms today. His rectal discomfort appears consistent with proctalgia fugax. We discussed the pathophysiology of this disorder today. We reassured him that it is a benign condition. Reflux symptoms are under good control with diet. He will continue diet, lifestyle modifications, and weight management regarding the treatment of reflux. Finally he is due for screening colonoscopy. This will be arranged. He understands risks and benefits and agrees to proceed. 10/08/2023 Gastroesophageal reflux disease, unspecified whether esophagitis present (ICD-10 - K21.9) We discussed his symptoms today. His rectal discomfort appears consistent with proctalgia fugax. We discussed the pathophysiology of this disorder today. We reassured him that it is a benign condition. Reflux symptoms are under good control with diet. He will continue diet, lifestyle modifications, and weight management regarding the treatment of reflux. Finally he is due for screening colonoscopy. This will be arranged. He understands risks and benefits and agrees to proceed. 10/08/2023 Proctalgia fugax (ICD-10 - K59.4) We discussed his symptoms today. His rectal discomfort appears consistent with proctalgia fugax. We discussed the pathophysiology of this disorder today. We reassured him that it is a benign condition. Reflux symptoms are under good control with diet. He will continue diet, lifestyle modifications, and weight management regarding the treatment of reflux. Finally he is due for screening colonoscopy. This will be arranged. He understands risks and benefits and agrees to proceed. Plan Of Treatment Treatment Notes Assessment Notes Colon cancer screening Colonoscopy mater ial was printed Future Test Test Name Order Date COLONOSCOPY 10/08/2023 Next Appt Details Follow Up: 1 Year, Reason: Progress Notes * CHARLEY GERMAN SDOB:1955 (67 yo M)Acc No.[id number]:10/08/2023 Progress Notes Patient:?CHARLEY GERMAN Provider:?Cameron Esposito MD :1955???Age:67 Y???Sex:Male Darwin e:10/08/2023 Address:[address] [place] [address] Pcp:Abiodun Estevez MD Subjective: * Chief Complaints: * ???1. Patient presents today for a consultation. * HPI: ???New symptom(s):? Mr. German is a pleasant 67-year-old man seen today in consultation. He describes intermittent sharp rectal pain which occur sporadically. This is not related to diet, or bowel movements. This has happened a half a dozen times over the past year. He's also had some metal exposure and wonders if this is affecting this. He has no rectal bleeding or change in his bowel habits. He has a family history of colon polyps and last underwent colonoscopy in 2019. He is due for followup. ?He has a history of reflux disease, currently well-controlled with diet. He has no dysphagia, hematemesis, or melena. Weight and appetite have been stable. * ROS:?General/Constitutional:?Change in appetite?denies.?Fatigue?denies.?ENT:?Patient denies?difficulty swallowing.?Respiratory:?Patient denies?shortness of breath.?Cardiovascular:?Patient denies?chest pain.?Gastrointestinal:?Comments?See HPI for details.?Genitourinary:?Difficulty urinating?denies.?Incontinence?denies.?Musculoskeletal:?Patient denies?muscle aches.?Skin:?Patient denies?pruritis.?Neurologic:?Patient denies?low back pain.?Psychiatric:?Patient denies?mental or physical abuse.? * Medical History:?Gastroesoph ageal reflux disease, Obstructive sleep apnea, Hyperlipidemia, Arthritis, Colonoscopy 2019, negative, five-year followup due to family history of colon polyps.. * Surgical History:?ACL repair right knee . * Family History:?Father: dece ased, diagnosed with HTN (hypertension), Diabetes.?Mother: , diagnosed with Diabetes, HTN (hypertension).? step brother with colon polyps-same mother. No family history of liver cancer or colon cancer. * Social History:?Tobacco Use:?Tobacco Use/Smoking?Patient is a?former smoker,?How long has it been since you last smoked??> 10 years.?Drugs/Alcohol:?Alcohol Screen?Did you have a drink containing alcohol in the past year??Yes,?How often did you have a drink containing alcohol in the past year??2 to 3 times a week (3 points),?How many drinks did you have on a typical day when you were drinking in the past year??1 or 2 drinks (0 point),?How often did you have 6 or more drinks on one occasion in the past year??Never (0 point),?Points?3,?Interpretation?Negative.?Miscellaneous:?Marital status: . 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 * Medications:?Taking Ibuprofe n 600 MG Tablet 1 tablet with food or milk as needed Orally BID, Notes: as needed, Discontinued Colyte with Flavor Packs 240 GM Solution Reconstituted As directed Orally Over the specified time., Medication List reviewed and reconciled with the patient * Allergies:?N.K.D.A. Objective: * Vitals:?Wt: 168 lb 2 oz, Ht: 66 in, BMI:27.13 Index, BP: 000/00 mm Hg, Temp: 97.5. * Examination: ???General Examination: ?GENERAL APPEARANCE:?in no acute distress.?HEAD:?normocephalic.?EYES:?sclera non-icteric.?ORAL CAVITY:?mucosa moist.?NECK/THYROID:?no lymphadenopathy.?SKIN:?anicteric.?HEART:?S1, S2 normal, no murmurs.?LUNGS:?clear to auscultation bilaterally.?CHEST:?normal shape and expansion.?ABDOMEN:?soft, nontender, nondistended, bowel sounds present, no organomegaly .?EXTREMITIES:?no clubbing, cyanosis, or edema.?PSYCH:?cognitive function intact.? Assessment: * Assessment: 1.?Gastroesophageal reflux d isease, unspecified whether esophagitis present - K21.9 (Primary)?2.?Colon cancer screening - Z12.11?3.?Proctalgia fugax - K59.4? We discussed his symptoms to day. His rectal discomfort appears consistent with proctalgia fugax. We discussed the pathophysiology of this disorder today. We reassured him that it is a benign condition. Reflux symptoms are under good control with diet. He will continue diet, lifestyle modifications, and weight management regarding the treatment of reflux. Finally he is due for screening colonoscopy. This will be arranged. He understands risks and benefits and agrees to proceed. Plan: * Treatment: Notes: Colonoscopy material was printed?? * Immunizations:? Influenza (Not administered - Refused: Patient decision) * Procedure Codes:?3017F COLOR ECTAL CA SCREEN DOC REV, G9903 Pt scrn tbco id as non user, G9745 DOC RSN FOR NOT SCREEN/REC F/U HBP * Preventive Medicine:? ??Counseling:?Care goal follow-up plan:?Above Normal BMI Follow-up?Giving encouragement to exercise,?BMI management provided?Yes.? * Follow Up:?1 Year * * Sign off status: Completed true * Provider:?Cameron Esposito MD Date:?0 10/08/2023 Generated for Margo olvera/Becca/eTransmitting on:?10/01/2024 07:35 AM EDT History and Physical Notes * HPI (History of Present Illness) Category Sub-Category Detail Notes Category Not es New symptom(s) Mr. German is a pleasant 67-year-old man seen today in consultation. He describes intermittent sharp rectal pain which occur sporadically. This is not related to diet, or bowel movements. This has happened a half a dozen times over the past year. He's also had some metal exposure and wonders if this is affecting this. He has no rectal bleeding or change in his bowel habits. He has a family history of colon polyps and last underwent colonoscopy in 2019. He is due for followup. He has a history of reflux disease, currently well-controlled with diet. He has no dysphagia, hematemesis, or melena. Weight and appetite have been stable. Examination Category Sub-Category Detail Notes Category Not es General Examination GENERAL APPEARANCE: in no acute di stress HEAD: normocephalic EYES: sclera non-icteric NECK/THYROID: no lymphadenopathy HEART: S1, S2 normal, no mu rmurs CHEST: normal shape and exp ansion LUNGS: clear to auscultatio n bilaterally ABDOMEN: soft, nontender, non distended, bowel sounds present, no organomegaly SKIN: anicteric EXTREMITIES: no clubbing, cyanosi s, or edema PSYCH: cognitive function i ntact ORAL CAVITY: mucosa moist
--- OUTSIDE RECORDS SUMMARY | 2024-10-01 07:35 | XMS_ITS ---
Author Organization [facility] Address [address] [place] [address] Care Team Providers Care Aboriginal Education Worker Coordinator Name Role Phone Abiodun Estevez MD Primary Care Provider Cameron Briones Jr REASON FOR VISIT results Encounters Encounter Location Date Provider Diagnosis [facility] [address] [place] [address] 11/08/2023 Cameron Esposito Jr Plan Of Treatment No Information Progress Notes * CHARLEY GERMAN SDOB:1955 (67 yo M)Acc No.[id number]:11/08/2023 Patient:?CHARLEY GERMAN :1955???Age:67 Y???Sex:Male Address:[address] [place] [address] * true * Date:? Generated for Margo olvera/Becca/eTransmitting on:?10/01/2024 07:35 AM EDT
--- OUTSIDE RECORDS SUMMARY | 2024-10-01 07:35 | XMS_ITS ---
Author Organization [facility] Address [address] [place] [address] Care Team Providers Care Centrifugal Spinner Name Role Phone Abiodun Estevez MD Primary Care Provider Cameron Briones Jr REASON FOR VISIT screening Encounters Encounter Location Date Provider Diagnosis [facility] [address] [place], [place] [phone] 11/02/2023 Cameron Esposito Jr Encounter for screening colonoscopy Z12.11 and Family history of colon cancer Z80.0 Assessments Encounter Date Diagnosis (ICD Code) Assessment Notes Treatment Notes Treatment Clinical Notes Section Notes 11/02/2023 Encounter for screening colonoscopy (ICD-10 - Z12.11) 11/02/2023 Family history of colon cancer (ICD-10 - Z80.0) Plan Of Treatment No Information Progress Notes * CHARLEY GERMAN SDOB:1955 (68 yo M)Acc No.[id number]:11/02/2023 COLON WITH MAC Patient:?CHARLEY GERMAN Provider:?Cameron Esposito MD :1955???Age:67 Y???Sex:Male Darwin e:11/02/2023 Address:[address] [place], [place] Pcp:Abiodun Estevez MD Subjective: * Chief Complaints: * ???1. Screening. * Medical History:? Objective: * Vitals:? Assessment: * Assessment: 1.?Encounter for screening c olonoscopy - Z12.11 (Primary)???2.?Family history of colon cancer - Z80.0??? Plan: * Treatment: * Procedure Codes:?83815 DIAGN OSTIC COLONOSCOPY * * The named appointment provid er may or may not be the originator of this progress note, and it is not deemed complete until electronically signed by the appointment provider. Sign off status: Pending * Provider:?Cameron Esposito MD Date:?0 11/02/2023 Generated for Margo olvera/Becca/Prabhjotitting on:?10/01/2024 07:35 AM EDT
--- OUTSIDE RECORDS SUMMARY | 2024-10-01 07:36 | XMS_ITS | Patient Health Record ---
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 Problem 938968697 Gastroesophageal reflux disease, unspecified whether esophagitis present (K21.9) Active confirmed Vital Signs Temperature 97.5 degrees Fahrenheit 10/08/2023 Blood pressure diastolic 00 mm Hg 10/08/2023 Height 66 in 10/08/2023 Blood pressure systolic 000 mm Hg 10/08/2023 Weight 168 lb 2 oz lbs 10/08/2023 BMI 27.13 kg/m2 10/08/2023 Encounters Encounter Location Date Provider Diagnosis [facility] [place] [facility] [address] [place], [place] [phone] 11/02/2023 Cameron Esposito Jr Encounter for screening colonoscopy Z12.11 and Family history of colon cancer Z80.0 [facility] [address] [place] [address] 10/08/2023 Cameron Esposito Jr Colon cancer screening Z12.11 ; Gastroesophageal reflux disease, unspecified whether esophagitis present K21.9 and Proctalgia fugax K59.4 [facility] [address] [place] [phone] 11/08/2023 Cameron Esposito Jr Assessments Encounter Date Diagnosis (ICD Code) Assessment Notes Treatment Notes Treatment Clinical Notes Section Notes 11/02/2023 Encounter for screening colonoscopy (ICD-10 - Z12.11) 11/02/2023 Family history of colon cancer (ICD-10 - Z80.0) 10/08/2023 Colon cancer screening (ICD-10 - Z12.11) [...] and agrees to proceed. Plan Of Treatment Future Test Test Name Order Date COLONOSCOPY 03/29/2018 COLONOSCOPY 10/08/2023 Insurance Providers Payer Name Payer Address Payer Phone Subscriber Number Group Number Insured Name Patient Relationship to Insured Coverage Start Date Coverage End Date [facility] [address] [place], [place] [id number] [phone] [id number] MAXICHARLEY Self - patient is the insured Medical (General) History Medical History History ICD Code Gastroesophageal reflux disease Obstructive sleep apnea Hyperlipidemia Arthritis Colonoscopy 2018, negative, five-year followup due to family history of colon polyps. Surgical History Surgery Date(Month/Year) ACL repair right knee
[2024-10-01 11:43] LABS: MANUAL DIFF FLAG NO
[2024-10-01 11:48] LABS: Basophils Percent Auto 0.5 % (0-2); Eosinophils Absolute Auto 0.1 X10*3/uL (0.0-0.4); Eosinophils Percent Auto 2.2 % (0-4); Hematocrit 43.9 % (42.0-52.0); Hemoglobin 14.5 g/dl (14.0-18.0); Imm Gran Abs Auto 0.02 X10*3/uL (0.00-0.03); Imm Gran Pct Auto 0.3 % (0.0-0.4); Lymphocytes Absolute Auto 1.6 X10*3/uL (1.2-4.9); Lymphocytes Percent Auto 27.4 % (20-40); Mean Corpuscular Hemoglobin 29.6 pg (27.0-33.0); Mean Corpuscular Volume 89.6 fL (80.0-98.0); Mean Platelet Volume 10.6 fL (9.4-12.4); Monocytes Absolute Auto 0.6 X10*3/uL (0.1-1.2); Monocytes Percent Auto 10.3 % (2-11); Neutrophils Absolute Auto 3.5 x10*3/uL (2.0-8.3); Neutrophils Percent Auto 59.3 % (45-73); Platelet Count 219 X10*3/uL (160-400); Red Cell Distribution Width 13.2 % (11.0-16.0); White Blood Count 5.9 X10*3/uL (4.8-10.8)
[2024-10-01 11:52] LABS: Estimated Average Glucose 111 mg/dL; Hemoglobin A1C 137.3844 umol/L; Hemoglobin A1c % 5.5 % (<6.0); Total Hemoglobin (HGBA1C) 3724.3043 umol/L
[2024-10-01 12:13] LABS: Alanine Aminotransferase 19 U/L (0-40); Albumin Level 4.3 g/dL (3.5-5.0); Alkaline Phosphatase 82 U/L (39-117); Anion Gap 9 (12-20); Aspartate Amino Transferase 21 U/L (5-37); Bilirubin Total 0.6 mg/dL (0.0-1.0); Blood Urea Nitrogen 16 mg/dL (9-16); Calcium 9.4 mg/dL (8.4-10.2); Carbon Dioxide 28 mmol/L (22-29); Chloride 106 mmol/L (96-108); Cholesterol 247 mg/dL (<200); Estimated Glomerular Filt Rate > 60; Glucose Random 96 mg/dL (60-115); HDL Cholesterol 54 mg/dL (>40); LDL Cholesterol Calculated 173 mg/dL (<100); Potassium 4.2 mmol/L (3.3-5.1); Sodium 139 mmol/L (135-145); Triglycerides 102 mg/dL (<150)
[2024-10-01 12:32] LABS: Free T4 (Free Thyroxine) 0.94 ng/dL (0.71-1.85); Thyroid Stimulating Hormone 1.43 uIU/mL (0.32-4.0)
[2024-10-01 12:41] LABS: Folate 12.3 ng/mL (> or = 4.0); Prostate Specific Antigen Scr 0.54 ng/mL (<0.05-4.0); Vitamin B12 451 pg/mL (200-900)
[2024-10-02 09:04] LABS: Lyme Abs Screen <0.90 index
[2024-10-02 15:09] LABS: Venous Lead <1.0 mcg/dL (<3.5)
[2024-10-04 03:58] LABS: Mercury, Blood <4 mcg/L (<=10)
[2024-10-06 22:43] LABS: Treponema pallidum Ab FTA ABS Nonreactive (Nonreactive)
== END 2024-10-01 07:32 | disposition home or self-care (01) ==
LOC: HO.WFDLDS 07:31
PROVIDERS: Visit Provider Internal Medicine
DX: R03.0 Elevated blood-pressure reading, without diagnosis of hypertension (principal); E78.00 Pure hypercholesterolemia, unspecified; M25.551 Pain in right hip; M25.552 Pain in left hip; Z12.5 Encounter for screening for malignant neoplasm of prostate
CPT/HCPCS: 36415; 71046; 73522; 80053; 80061; 82607; 82746; 83036; 83655; 83825; 84153; 84439; 84443; 85025; 86617; 86618; 86780

== ENCOUNTER → 2024-10-01 11:11 | Outpatient (BNV) | payer MEDICARE, SELFPAY | PROVIDERS: Visit Provider Radiology Diagnostic Radiology | DX: M16.0 Bilateral primary osteoarthritis of hip (principal); R03.0 Elevated blood-pressure reading, without diagnosis of hypertension | CPT/HCPCS: 71046; 73522 ==

== ENCOUNTER 2024-11-04 12:30 | Outpatient (AMB) | payer MEDICARE, SELFPAY ==
[2024-11-04 12:33] VITALS: BP 140/70; PULSE 81; O2SAT 98; BMI 26.1
--- NOTE | 2024-11-04 12:33 | A.OFFPC_ITS ---
Vital Signs 11/04/24 12:33 Height 5 ft 6 in Weight 162 lb BMI 26.1 BP 140/70 H Blood Pressure Location Lt brachial Position Sitting Pulse 81 Pulse Source Pulse Oximeter Pulse Oximetry (%) 98 Oxygen Delivery Method Room Air Intake Visit Reasons: Rheumatology Referral Request Allergies No Known Allergies Allergy (Verified 11/04/24 12:33) Tobacco use date assessed: 08/08/24 Fall risk assessment: No Falls in past year Last assessed Fall Risk: 11/04/24 Dental Screening Dental Screen Date: 08/08/24 [facility] Medical History (Updated 11/04/24 @ 13:06 by Abiodun Estevez MD) Bilateral hand pain Elevated cholesterol Arthritis Sleep apnea Overweight (BMI 25.0-29.9) GERD (gastroesophageal reflux disease) Surgical History History of repair of anterior cruciate ligament H/O colonoscopy Family History (Updated 09/13/22 @ 12:15 by Vale Helton CMA) Father Abdominal aneurysm Skin cancer Mother Alzheimer disease Sister No problems noted. Sister No problems noted. Brother Substance abuse Daughter No problems noted. Social History (Updated 08/08/24 @ 09:45 by Abiodun Estevez MD) Housing: Apartment Alcohol intake: current Alcohol intake frequency: former alcohol drinker Comment: last drink thanks 1 glass Patient Tobacco Use Status: Former Tobacco user Tobacco use type: Cigarette Years Smoked: 1989 quit MArijuana e-Cigarette/Vaping Use: Never Used Second Hand Smoke Exposure: No service: No Current occupational status: employed Cognitive needs: No Hearing needs: No Vision needs: Yes Questionnaire PHQ-9 Over the last 2 weeks, how often have you been bothered by any of the following problems? 1. Little interest or pleasure in doing things: not at all 2. Feeling down, depressed, or hopeless: not at all 3. Trouble falling or staying asleep, or sleeping too much: more than half the days 4. Feeling tired or having little energy: several days 5. Poor appetite or overeating: not at all 6. Feeling bad about yourself - or that you are a failure or have let yourself or your family down: not at all 7. Trouble concentrating on things, such as reading the newspaper or watching television: not at all 8. Moving or speaking so slowly that other people could have noticed. Or the opposite - being so fidgety or restless that you have been moving around a lot more than usual: not at all 9. Thoughts that you would be better off or of hurting yourself in some way: not at all Total score: 3 Depression Screening Interpretation: Positive Depression Screening Done: Yes 86227 - PHQ-9 Billing: Yes Source: Developed by Drs. Danny Emerson, Alissa Saab, Tony Krishna and colleagues, with an educational cyndie from [employer]. Thrive Questionnaire Date Thrive assessed: 08/06/24 I am a: Patient What is your living situation today?: I choose not to answer this question Within the past 12 months, did the food you bought not last and you didn't have the money to get more?: I choose not to answer this question Within the past 12 months, did you worry whether your food would run out before you got money to buy more?: I choose not to answer this question Do you have trouble paying for medicines?: I choose not to answer this question Do you have trouble getting transportation to medical appointments?: I choose not to answer this question Do you have trouble paying your heating and electricity bill?: I choose not to answer this question Do you have trouble taking care of your child, family member or friend?: I choose not to answer this question Do you have trouble with day-to-day activities such as bathing, preparing meals, shopping, managing finances, etc.?: I choose not to answer this question Are you currently unemployed and looking for a job?: I choose not to answer this question Are you interested in more education?: I choose not to answer this question Please select the resources that you would like help with: None Currently or been in a relationship where the following occur: No concerns reported THRIVE Score: 0 AUDIT C Alcohol Use Questionnaire (AUDIT-C) 1. How often do you have a drink containing alcohol?: Never 3. How often do you have six or more drinks on one occasion?: Never Total Score: 0 MEE-7 AMB Questionnaire MEE-7 Date MEE - 7 assessed: 08/08/24 Feeling nervous, anxious, or on edge: 0 = Not at all Not being able to stop or control worryin = Not at all Worrying too much about different things: 0 = Not at all Trouble relaxin = Not at all Being so restless that it is hard to sit still: 0 = Not at all Becoming easily annoyed or irritable: 0 = Not at all Feeling afraid as if something awful might happen: 0 = Not at all Total MEE-7 score (0-4 normal; 5-9 mild; 10-14 moderate; 15-21 severe): 0 Source: Developed by Drs. Danny Emerson, Alissa Saab, Tony Krishna and colleagues, with an educational cyndie from [employer]. Physical exam (Primary Care) Vital Signs: Last Vital Signs Pulse 81 11/04/24 12:33 BP 140/70 H 11/04/24 12:33 Pulse Ox 98 11/04/24 12:33 Oxygen Delivery Method Room Air 11/04/24 12:33 BMI result Body Mass Index 26.1 Tobacco/Smoking Status: Tobacco use Status Tobacco use date assessed 08/08/24 11/04/24 12:37 Patient Tobacco Use Status Former Tobacco user 11/04/24 12:37 Tobacco use type Cigarette 11/04/24 12:37 e-Cigarette/Vaping Use Never Used 11/04/24 12:37 PHQ-9: PHQ-9 Score PHQ-9: Total score 3 11/04/24 12:59 Depression Screening Interpretation: Positive Thrive Assessment: Date of Thrive Assessment Date Thrive assessed 08/06/24 11/04/24 12:37 Currently or been in a relationship where the following occur: No concerns reported Const General: alert; No acute distress Eyes Conjunctivae: conjunctivae normal Resp Auscultation: clear to auscultation bilaterally Cardio Rate: regular rate Rhythm: regular rhythm GI Inspection: Yes normal to inspection Extrem General: Yes normal to inspection and No edema Coding Level of Care Code Est Pt Level 4 (41403) Complex EM visit Add On G2211 Diagnoses Bilateral hip pain M25.551; M25.552 Cardiomegaly I51.7 Hypercholesterolemia E78.00 Blood pressure elevated without history of HTN R03.0 Hypertension I10 Additional Codes PHQ-9 - 49849 - PHQ-9 Billing: Yes ([id number]) Assessment & Plan Assessment & Plan (1) Bilateral hip pain: Code(s): M25.551 - Pain in right hip; M25.552 - Pain in left hip Category: Medical (2) Cardiomegaly: Code(s): I51.7 - Cardiomegaly Category: Medical Plan: Will order for echo, (3) Hypercholesterolemia: Code(s): E78.00 - Pure hypercholesterolemia, unspecified Category: Medical Plan: Avoid fried foods, chicken skin, eggs, butter margarine, pastries and meat. Be it pork or beef they have a lot of cholesterol LDL goal of less than 130 and triglyceride of less than 150. (4) Blood pressure elevated without history of HTN: Code(s): R03.0 - Elevated blood-pressure reading, without diagnosis of hypertension Category: Medical (5) Hypertension: Code(s): I10 - Essential (primary) hypertension Category: Medical Plan History of Present Illness The patient is a 68-year-old male presenting for follow-up of persistent and multiple chronic conditions including obstructive sleep apnea, recurrent depression, type 2 diabetes mellitus, and osteoarthritis affecting both hips and hands. Notably, the patient presented with hyperglycemia, boasting a recent blood sugar level of 996 mg/dL while maintaining an abnormally low hemoglobin A1c. Dyslipidemia was also highlighted, requiring lifestyle and medication adjustments due to elevated LDL cholesterol. Past records indicate moderate osteoarthritis, particularly affecting the hips, being managed but seemingly unchanged since prior imaging in July 2019. Persistent depression, while stable in recent times, alongside obstructive sleep apnea demands continuous care and management. Despite the newly noted cardiac murmur and evidence of cardiomegaly, the patient remains asymptomatic; however, further evaluation via echocardiography is anticipated. Health Maintenance - Lifestyle modifications including dietary changes to address dyslipidemia and hyperglycemia. - Encouragement of physical activity as tolerated and participation in physical therapy to aid in managing osteoarthritis. - Scheduled echocardiogram to evaluate cardiac murmur and cardiomegaly. - Arrangements made for rheumatology consultation. Social History - Recent functional decline affecting activities such as getting in and out of the car. 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 - No explicit mentions of employment type or specific dietary habits. Review of Systems - Cardiovascular: Reports enlarged heart and cardiac murmur. - Musculoskeletal: Reports bilateral hip pain and hand discomfort. - Endocrine: Denies awareness of any recent symptoms beyond blood sugar elevation. Physical Exam - Musculoskeletal- No specific measurements or detailed physical exam findings explicitly documented in the conversation. Results - Labs: Blood sugar of 996 mg/dL, Hemoglobin A1c at 0.55%, and elevated LDL cholesterol at 1.1 cm. - Imaging: Previous X-ray indicating moderate osteoarthritis of the hips. Plan Given the patient?s current hyperglycemia and low hemoglobin A1c levels, immediate correction and chronic diabetes management are priorities. Lipid management and lifestyle interventions should be implemented to address dyslipidemia and reduce cardiovascular risks. Continuation of psychiatric care is required for chronic depression. Rheumatology consultation alongside physical therapy referral will manage osteoarthritis, focusing on pain relief and enhanced mobility. Cardiac assessment through an echocardiogram is planned to evaluate the extent of cardiomegaly and the detected murmur's impact. Follow-up visits are essential for ongoing evaluation and treatment adjustments. Patient was informed and verbally consented to the use of an ambient scribe for clinic note documentation during this visit. Discussion Notes I discussed with the patient the critical need for urgent diabetes management given the extremely elevated blood glucose. We explored dietary changes and possibly initiated lipid-lowering medication to address dyslipidemia. Also, I explained osteoarthritis's impact on his life and the importance of rhe umatological and physical therapy consultations. I emphasized ongoing management of his depression and the planned echocardiogram to explore the heart murmur and cardiomegaly. Follow-ups have been scheduled to review progress and adjust care based on response to current strategies. Patient Instructions - Monitor blood sugar levels regularly; seek help if levels are persistently high. - Follow dietary recommendations for cholesterol and sugar management. - Attend scheduled echocardiogram to assess heart health. - Undertake physical therapy as advised to improve joint function. - Ensure psychiatric follow-up for mood management. - Schedule follow-up visit on November 14 as planned. Orders: Orders CA echo transthoracic complete Today I51.7 - Cardiomegaly PT Evaluation and Treatment Today M25.551 - Pain in right hip, M25.552 - Pain in left hip Lipid Panel 3 Months E78.00 - Pure hypercholesterolemia, unspecified Comprehensive Met. Panel 3 Months E78.00 - Pure hypercholesterolemia, unspecified Referrals Rheumatology Referral M25.551 - Pain in right hip, M25.552 - Pain in left hip Medications: New simvastatin 5 mg PO BEDTIME 30 tabs 2RF E78.00 - Pure hypercholesterolemia, unspecified hydrochlorothiazide 12.5 mg PO DAILY 30 tabs 2RF I10 - Essential (primary) hypertension
--- OUTSIDE RECORDS SUMMARY | 2024-11-04 12:37 | XMS_ITS ---
Author Organization [facility] Address [address] [place] [address] Care Team Providers Care Environmental Associate Name Role Phone Abiodun Estevez MD Primary Care Provider Cameron Briones Jr [phone] REASON FOR VISIT screening Encounters Encounter Location Date Provider Diagnosis [facility] Outpatient [address] [place], [place] [id number] 11/02/2023 Cameron Esposito Jr Encounter for screening colonoscopy Z12.11 and Family history of colon cancer Z80.0 Assessments Encounter Date Diagnosis (ICD Code) Assessment Notes Treatment Notes Treatment Clinical Notes Section Notes 11/02/2023 Encounter for screening colonoscopy (ICD-10 - Z12.11) 11/02/2023 Family history of colon cancer (ICD-10 - Z80.0) Plan Of Treatment No Information Progress Notes * CHARLEY GERMAN SDOB:1955 (68 yo M)Acc No.[id number]:11/02/2023 COLON WITH MAC Patient:?CHARLEY GERMAN Provider:?Cameron Esposito MD :1955???Age:67 Y???Sex:Male Darwin e:11/02/2023 Address:[address] [place], [place] Pcp:Abiodun Estevez MD Subjective: * Chief Complaints: * ???1. Screening. * Medical History:? Objective: * Vitals:? Assessment: * Assessment: 1.?Encounter for screening c olonoscopy - Z12.11 (Primary)???2.?Family history of colon cancer - Z80.0??? Plan: * Treatment: * Procedure Codes:?40914 DIAGN OSTIC COLONOSCOPY * * The named appointment provid er may or may not be the originator of this progress note, and it is not deemed complete until electronically signed by the appointment provider. Sign off status: Pending * Provider:?Cameron Esposito MD Date:?0 11/02/2023 Generated for Margo olvera/Becca/Prabhjotitting on:?11/04/2024 12:36 PM EDT
== END 2024-11-04 13:29 | disposition home or self-care (01) ==
LOC: HO.HMCH 12:31
PROVIDERS: Visit Provider Internal Medicine
DX: M25.551 Pain in right hip (principal); M25.552 Pain in left hip; I51.7 Cardiomegaly; E78.00 Pure hypercholesterolemia, unspecified; R03.0 Elevated blood-pressure reading, without diagnosis of hypertension; I10 Essential (primary) hypertension

== ENCOUNTER → 2024-11-04 12:30 | Outpatient (BNVA) | payer MEDICARE, SELFPAY | PROVIDERS: Visit Provider Internal Medicine | DX: M25.551 Pain in right hip (principal); M25.552 Pain in left hip; I51.7 Cardiomegaly; E78.00 Pure hypercholesterolemia, unspecified; I10 Essential (primary) hypertension; G47.33 Obstructive sleep apnea (adult) (pediatric); F32.A Depression, unspecified; E11.9 Type 2 diabetes mellitus without complications; M19.042 Primary osteoarthritis, left hand; M19.041 Primary osteoarthritis, right hand | CPT/HCPCS: 96127; 99212 ==

== ENCOUNTER 2024-11-21 09:15 | Outpatient (RCR) | payer MEDICARE, SELFPAY ==
--- NOTE | 2024-11-21 13:54 | MHC.PT.EP ---
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 THE Pt HAS DECR HIP AROM IR AND FLEX SIVA, DECR GLUTE STRENGTH, DECR POSTURAL AWARENESS, AND PAIN IMPACTING HIS ALDEN FOR MORE PHYSICALLY CHALLENGING ADLs/ WORK TASKS. WE DISCUSSED THE PT POC AND THE Pt WOULD LIKE TO PROCEED. Frequency and Duration: The patient will be seen 2 X WK x 5 WKS Short Term Goals: DECR SIVA HIP PAIN TO 2-3/10 INITIATE HEP IMPROVE SIVA HIP IR AND Rt TERMINAL KNEE EXT-> REDUCE LLI INFLUENCE [employer] Technician Goals: INDEP HEP AND SELF SX MGMT IMPROVE LEFI 46/80 Pt DEMON 3:3 SIMUL WORK TASKS W PROPER BODY MECH -> SIMUL 40 LB BACKPACK VACUUM Treatment Plan: Modalities to reduce pain, spasms and effusion. Manual therapy to restore motion and function. Therapeutic exercise to improve strength and flexibility. Neuromuscular re-education for posture and balance. Therapeutic activities to return to functional activities of daily living. Electronically signed by: LEONARD QUINTERO,PT Please sign and return to therapist. Thank you for your referral.
--- NOTE | 2025-02-26 07:25 | MHC.PT.DC ---
[facility] [place] [facility] [place] [facility] [address] Simran Freire [address] [phone] F: [phone] F: [phone] F: [phone] F: [phone] Physical Therapy Discharge Report Diagnosis: BILATERAL HIP PAIN-> TROCHANTERIC BURSITIS SIVA-> CORE STAB, HIP ABD STRENGTHENING W FOCUS ON ECCENTRIC STRENGTH AND BALANCE; HEP; STRETCHING Date of Surgery: Date of Evaluation: 11/21/24 Date of Discharge: 02/26/25 Treatments to Date: 1 Cancellations to Date: 6 No Shows to Date: Discharge Status: Patient Elected to Stop Visit Non-compliance Discharge Summary: CHARLEY IS D/C FROM PT DUE TO POOR ATTENDANCE FOR SCHED PT APPTS- HE APPEARED TO BE A GOOD PT CANDIDATE- AT HIS EVAL, HE WAS ED RE INITIAL HEP AND POSTURAL AWARENESS. HE DID NOT MEET PT GOALS AND IS D/C PER THE PT DEPT ATTENDANCE POLICY. PLEASE RE-REFER WHEN THE Pt WOULD BE ABLE TO COMMIT TO REGULAR ATTENDANCE. THANK YOU. Electronically signed by: LEONARD QUINTERO,PT Please sign and return to therapist. Thank you for your referral.
== END 2025-02-26 07:25 | disposition home or self-care (01) ==
LOC: HO.PT 09:15
PROVIDERS: PCP Internal Medicine; Visit Provider Internal Medicine
DX: M25.551 Pain in right hip (principal); M25.552 Pain in left hip
CPT/HCPCS: 97110; 97162

== ENCOUNTER → 2024-11-21 13:47 | Outpatient (REF) | payer MEDICARE, SELFPAY ==
--- NOTE | 2024-11-21 13:50 | CA_ITS ---
Transthoracic Echocardiogram Patient (Last, First, Middle): Yasmany Dorsey S Gender: Male Date of : 1955 Age: 68 Procedure Date: 11/21/2024 Procedure Type: Transthoracic Echocardiogram Location: OP Height: 167.64 cm Weight: 70.76 kg BSA: 1.80 m2 Heart Rate: 57 bpm BP: 140 / 70 mmHg Sheet Taker: CLARISSA Referring MD: Abiodun Estevez MD Medical Care Evaluation Specialist: Mehdi Grullon MD Symptoms: I51.7 - Cardiomegaly Study Quality: Adequate ECG Rhythm: Bradycardia Conclusions: - 1. Normal LV ejection fraction of 60-65% 2. Normal cardiac valvular Dopplers 3. Mildly dilated ascending aorta 3.8 cm 4. Normal RV systolic pressure 5. No pericardial effusion Findings Left Ventricle Normal left ventricular size, thickness, and systolic function. The visually estimated ejection fraction is between 60-65%. Spectral Doppler is indicative of an impaired relaxation filling pattern. E/E prime ratio is between 8 and 15 consistent with indeterminate filling pressures. Peak GLS is -19.8%, within normal limits. Right Ventricle Normal right ventricular cavity size and systolic function. Atria Both atria are normal in size. There is no evidence of interatrial shunt. Aortic Valve Normal aortic valve structure and function. There is no aortic valve stenosis. There is no aortic valve regurgitation. Mitral Valve Normal mitral valve structure and function. There is trace mitral valve regurgitation. There is no mitral valve stenosis. Pulmonic Valve The pulmonic valve is likely normal. Tricuspid Valve Normal tricuspid valve structure. There is trace tricuspid valve regurgitation. The right ventricular systolic pressure is 19 mmHg. Normal right atrial pressure. There is no evidence of pulmonary hypertension. Great Vessels The pulmonary artery was not well visualized. There is mild dilatation of the ascending aorta measuring 3.80 cm. Venous The inferior vena cava is normal in size and collapses greater than 50% with inspiration. Pericardium/Pleural There is no evidence of pericardial effusion. Prior Study Comparison No prior study available for comparison. Measurements 2D Linear Measurements IVSd: 1.13 0.6-0.9/0.6-1.0 cm LVIDd: 5.11 3.9-5.3/4.2-5.9 cm LVIDd Index: 2.84 2.4-3.2/2.2-3.1 cm/m2 LVIDs: 3.29 2.0-3.6 cm LVPWd: 0.86 0.7-1.1 cm LA Diam: 3.60 2.7-3.8/3.0-4.0 cm LAIDs Index: 2.00 1.5-2.3 cm/m2 LV Mass: 232.99 67-162/88-224 g LV Mass Index: 129.44 43-95/49-115 g/m2 LVOT Diam: 2.40 3.0+(-)1.3 cm 2D Systolic Function EF 4C: 59.50 >55% EF 2C: 64.50 >55% EF BiP: 63.50 >55% Mitral Valve MV Pk E: 0.76 MV PK A: 1.00 MV Decel Time: 234.00 E/A: 0.80 E'Lateral: 6.09 E'Medial: 5.66 E/E' Med: 13.40 E/E' Lat: 12.40 PHT: 69.00 MVA PHT: 3.19 Decel Robeson: 3.24 Aortic Valve AoV Pk Yuriy: 1.25 AoV Pk Grad: 6.00 ANNELISE: 4.25 LVOT LVOT Pk Yuiry: 1.12 LVOT Mn Yuriy: 0.67 LVOT VTI: 0.25 LVOT Pk Grad: 5.00 LVOT Mn Grad: 2.00 LVOT Diam: 2.40 LVOT Area: 4.52 Diastolic Function MV Pk E: 0.76 MV Pk A: 1.00 E/A: 0.80 E'Medial: 5.66 E/E' Med: 13.40 E' Laterial: 6.09 E/E' Lat: 12.40 Right Ventricle TAPSE (mm): 22.80 TVS' Yuriy: 11.90 Tricuspid Valve TR Pk Yuriy: 1.99 TR Pk Grad: 16.00 RA Press: 3.00 RVSP: 19.00 Great Vessels Aorta Sinus of Valsalva: 3.90 2.0-3.5 cm Ao Asc: 3.80 2.1-3.4 cm Pulmonary Valve PV Pk Yuriy: 0.80 Peak PV Grad: 3.00 Updated in Other Vendor System with Status of Final Mehdi Grullon MD electronically signed on 11/21/2024 4:34:55 PM with status of Final
--- OUTSIDE RECORDS SUMMARY | 2024-11-21 13:51 | XMS_ITS ---
Author Organization [facility] Address [address] [place] [id number] Care Team Providers Care Molder Wax Ball Name Role Phone Abiodun Estevez MD Primary Care Provider Cameron Briones Jr REASON FOR VISIT screening Encounters Encounter Location Date Provider Diagnosis [facility] Outpatient [address] [place], [place] [phone] 11/02/2023 Cameron Esposito Jr Encounter for screening colonoscopy Z12.11 and Family history of colon cancer Z80.0 Assessments Encounter Date Diagnosis (ICD Code) Assessment Notes Treatment Notes Treatment Clinical Notes Section Notes 11/02/2023 Encounter for screening colonoscopy (ICD-10 - Z12.11) 11/02/2023 Family history of colon cancer (ICD-10 - Z80.0) Plan Of Treatment No Information Progress Notes * CHARLEY GERMAN SDOB:1955 (68 yo M)Acc No.[id number]:11/02/2023 COLON WITH MAC Patient:?CHARLEY GERMAN Provider:?Cameron Esposito MD :1955???Age:67 Y???Sex:Male Darwin e:11/02/2023 Address:[address] [place], [place] Pcp:Abiodun Estevez MD Subjective: * Chief Complaints: * ???1. Screening. * Medical History:? Objective: * Vitals:? Assessment: * Assessment: 1.?Encounter for screening c olonoscopy - Z12.11 (Primary)???2.?Family history of colon cancer - Z80.0??? Plan: * Treatment: * Procedure Codes:?34081 DIAGN OSTIC COLONOSCOPY * * The named appointment provid er may or may not be the originator of this progress note, and it is not deemed complete until electronically signed by the appointment provider. Sign off status: Pending * Provider:?Cameron Esposito MD Date:?0 11/02/2023 Generated for Margo olvera/Becca/Prabhjotitting on:?11/21/2024 01:51 PM EDT
== END ==
LOC: HO.CARD 13:47
PROVIDERS: PCP Internal Medicine; Visit Provider Internal Medicine
DX: I51.7 Cardiomegaly (principal)
CPT/HCPCS: 93306

== ENCOUNTER → 2024-11-21 13:50 | Outpatient (BNV) | payer MEDICARE, SELFPAY | PROVIDERS: PCP Internal Medicine; Visit Provider Internal Medicine Cardiovascular Disease | DX: I51.7 Cardiomegaly (principal) | CPT/HCPCS: 93306; 93356 ==